=== PATIENT | male | born 1975 | race Caucasian/White ===

== ENCOUNTER 2019-10-21 21:27 | Observation (INO) ==
[2019-10-21 22:01] LABS: Basophils % 0.1 % (0.1-2.0); Eosinophils # 0.4 K/mm3 (0.0-0.4); Eosinophils % 1.7 % (0.1-12.0); Hematocrit 52.2 % (42.0-52.0); Hemoglobin 17.9 g/dL (14.1-18.0); Lymphocytes # 1.8 K/mm3 (0.7-4.5); Mean Corpuscular HGB Conc 34.3 g/dL (31.8-35.4); Mean Corpuscular Volume 92.6 fl (80-94); Mean Platelet Volume 7.5 fl (7.4-10.4); Monocytes # 0.8 K/mm3 (0.1-1.0); Monocytes % 3.8 % (1.7-9.3); Neutrophils # 18.8 K/mm3 (1.8-7.8); Neutrophils % 86.3 % (37.0-80.0); Platelet Count 310 K/mm3 (142-424); Red Blood Count 5.64 M/mm3 (4.60-6.20); Red Cell Distribution Width 15.4 % (11.5-17.5); White Blood Count 21.8 K/mm3 (4.8-10.8)
[2019-10-21 22:08] LABS: Albumin Level 3.9 gm/dL (3.4-5.0); Albumin/Globulin Ratio 0.9 (1.1-1.8); Bilirubin,Total 1.2 mg/dL (0.2-1.0); Calcium 9.1 mg/dL (8.5-10.1); Globulin 4.5 gm/dl (1.3-3.2); Total Protein,Serum 8.4 gm/dL (6.4-8.2)
--- NOTE | 2019-10-21 22:28 | Emergency Department Note ---
ED Disposition Clinical Impression: SIRS (systemic inflammatory response syndrome) Pharyngitis Qualifiers: Pharyngitis/tonsillitis etiology: unspecified etiology Qualified Code(s): J02.9 - Acute pharyngitis, unspecified Cholelithiasis Qualifiers: Cholelithiasis location: gallbladder Cholecystitis presence: without cholecystitis Biliary obstruction: without biliary obstruction Qualified Code(s): K80.20 - Calculus of gallbladder without cholecystitis without obstruction Disposition: Admitted as Observation Condition on Discharge: Good Instructions: DI for Nausea -- Child Referrals: Toni Zapien [Primary Care Provider] - - Critical Care Critical Care Time: No Attestation: On 10/21/19, the high probability of a clinically significant, sudden or life threatening deterioration of the following system(s) required my full and direct attention, intervention and personal management. The time I documented below is in addition to time spent performing reported procedures but includes the following listed in this critical care notation. Medical Decision Making - Medical Records Medical records reviewed: Yes: I reviewed the patient's medical records. - Bertin Inquiry Pt receiving controlled substance: No Vital Signs: 10/21/19 21:36 Temperature 98.5 F Temperature Source Oral Pulse Rate [Right] 96 H Respiratory Rate 18 Blood Pressure [Right Arm] 123/87 Blood Pressure Mean [Right Arm] 99 Blood Pressure Source [Right Arm] Automatic Cuff Blood Pressure Position [Right Arm] Sitting 02 Sat by Pulse Oximetry 96 Oxygen Delivery Method Room Air - Lab Data Lab results reviewed: Yes: I reviewed the patient's lab results. Lab Results 10/21/19 21:45: C-Reactive Protein 9.0 H, Amylase 89, Lipase 75 10/21/19 21:45: ESR 8 10/21/19 21:45: WBC 21.8 H*, RBC 5.64, Hgb 17.9, Hct 52.2 H, MCV 92.6, MCH 31.8 H, MCHC 34.3, RDW 15.4, Plt Count 310, MPV 7.5, Neut % (Auto) 86.3 H, Lymph % (Auto) 8.0 L, [place] % (Auto) 3.8, Eos % (Auto) 1.7, Baso % (Auto) 0.1, Neut # (Auto) 18.8 H, Lymph # (Auto) 1.8, [place] # (Auto) 0.8, Eos # (Auto) 0.4, Baso # (Auto) 0.0, Total Counted 100, Neutrophils % (Manual) 80 H, Lymphocytes % (Manual) 17, Monocytes % (Manual) 3, Platelet Estimate Normal, Stomatocytes 1+ 10/21/19 21:45: Sodium 138, Potassium 3.0 L, Chloride 92 L, Carbon Dioxide 33 H, Anion Gap 16.0 H, BUN 23 H, Creatinine 0.98, Estimated Creat Clear 139, Estimated GFR 82, Est GFR ( Amer) 100, Glucose 128 H, Calcium 9.1, Total Bilirubin 1.2 H, AST 164 H, ALT 65, Alkaline Phosphatase 93, Total Protein 8.4 H , Albumin 3.9, Globulin 4.5 H, Albumin/Globulin Ratio 0.9 L 10/21/19 21:54: Influenza Type A Ag Negative, Influenza Type B Ag Negative 10/21/19 21:54: Group A Strep Rapid Negative 10/21/19 23:44: Urine Color Bridgett, Urine Appearance Slightly cloudy, Urine pH 6.0, Ur Specific [place] >= 1.030, Urine Protein 1+, Urine Glucose (UA) Negative, Urine Ketones 3+, Urine Blood 3+, Urine Nitrate Negative, Urine Bilirubin Negative, Urine Urobilinogen 2.0, Ur Leukocyte Esterase Negative, Urine RBC 5-10, Urine WBC 3-5, Ur Squamous Epith Cells Occasional, Urine Bacteria 1+, Urine Mucus 1+ 10/22/19 00:00: Mycoplasma pneumon IgM Non-reactive 10/22/19 01:10: Lactate 1.2 Result diagrams: 10/21/19 21:45 10/21/19 21:45 Orders (Tests/Meds): ED MEDICATIONS Generic Name Dose Route Start Last Admin Trade Name Freq PRN Reason Stop Dose Admin Ampicillin Sodium/Sulbactam 100 mls @ 200 mls/hr 10/22/19 02:15 Sodium 3 gm/ Sodium Chloride IV 11/05/19 02:14 Q6H KATHERINE Protocol Discontinued Medications Generic Name Dose Route Start Last Admin Trade Name Freq PRN Reason Stop Dose Admin Dexamethasone Sodium Phosphate 4 mg 10/22/19 02:10 Decadron 4mg/Ml 1ml Vial IV 10/22/19 02:11 ONCE ONE Diatrizoate Meglum/Diatrizoate Sod 30 ml 10/21/19 22:27 10/21/19 22:32 Gastrografin 66%-10% 30ml PO 10/21/19 22:28 30 ml ONCE ONE Administration Sodium Chloride 1,000 mls @ 999 mls/hr 10/21/19 22:00 10/21/19 21:55 Sod Chlor 0.9% 1000ml Bag IV 10/21/19 23:00 999 mls/hr .Q1H1M KATHERINE Administration Ioversol 75 ml 10/22/19 01:40 10/22/19 01:41 Rad-Optiray 350 100ml Vial IV 10/22/19 01:41 75 ml ONCE ONE Administration Protocol Lidocaine HCl 15 ml 10/22/19 02:11 Lidocaine 2% Viscous Solution 15ml Udc PO 10/22/19 02:12 ONCE ONE Methylprednisolone Sodium Succinate 125 mg 10/22/19 02:06 10/22/19 02:07 Solu-Medrol 125mg/2ml Vial IV 10/22/19 02:07 125 mg ONCE ONE Administration Ondansetron HCl 4 mg 10/21/19 21:49 10/21/19 21:54 Zofran 4mg/2ml Vial IV 10/21/19 21:50 4 mg ONCE ONE Administration Sodium Chloride 10 ml 10/22/19 01:40 10/22/19 01:41 Rad-Saline Flush 10ml Syringe IV 10/22/19 01:41 10 ml ONCE ONE Administration ORDERS Category Date Time Status CT abdomen pelvis w con Stat Cat Scan 10/22/19 00:01 Taken Chest XR 2 view (NOT portable) [XR chest 2V] Stat Exams 10/21/19 22:26 Taken Strep Screen Confirmation Stat Micro 10/21/19 21:54 Received - Radiology Data #1 Image(s): Chest Image Reviewed: Yes I reviewed the patient's radiology image Preliminary Findings: Normal/NAD - CT Data CT Scan: Abdomen, Pelvis Time Received: 02:[address] Reviewed: Yes: I have viewed the radiologist's interpretation Preliminary Findings: Abnormal (gallstones ) - Physician Consults Physician Consulted: ashwini Reason -: Admission Nausea/Vomiting/Diarrhea HPI - General Chief complaint: Nausea/Vomiting/Diarrhea Stated complaint: Vomiting three days Time Seen by Provider: 10/21/19 21:45 Mode of Arrival: Ambulatory Source of Information: Patient, Spouse, Medical Record Limitations: No Limitations Description of Symptoms (Recalled from ER Triage Doc. by RN): PATIENT REPORTS VOMITNG, SORE THROAT AND BODY ACHES X3 DAYS. - History of Present Illness HPI Narrative: sore throat and laryngitis over the last 2 days with hx of persistent vomiting and upper abd pain prior - no etoh and no recent tob use - no melena - no diarrhea - MD complaint: nausea, vomiting, abdominal pain Onset (ago): day(s) Description of Vomiting: bilious Associated Abdominal Pain: Yes Location of pain: epigastric Severity: moderate - Related Data Home Medications Medication Instructions Recorded Confirmed No Known Home Medications 07/10/18 07/10/18 Allergies Allergy/AdvReac Type Severity Reaction Status Date / Time No Known Allergies Allergy Verified 07/10/18 01:17 [facility] History - Hepatitis A Screen Drug use history?: No High risk sexual behaviors?: No History of sexually transmitted infection?: No Currently employed?: No Childcare worker?: No Do you have indoor plumbing?: Yes Do you have electricity?: Yes Attestation statement:: This patient has been screened for Hepatitis A risk factors. I have reviewed the patient's past medical history: Yes - Social History Smoking Status: Current every day smoker # Packs/Day (cigarettes): 1 Alcohol Intake: never Alcohol Intake Frequency:: holidays/special occasions only Occupational Status: unemployed ROS Obtained: Yes All systems reviewed & no additional complaints - Constitutional Constitutional: Denies fever(s), Reports weight loss - Eyes Eyes: Denies change in vision - ENT Ears, Nose, Mouth, and Throat: Reports as per HPI, Reports change in voice, Reports sore throat, Reports throat swelling - Cardiovascular Cardiovascular: Denies chest pain, Denies dyspnea - Respiratory Respiratory: No cough - Gastrointestinal Gastrointestingal: Reports: as per HPI, abdominal pain, nausea - Genitourinary Male Genitourinary: Denies flank pain, Denies hematuria - Musculoskeletal Musculoskeletal: Denies joint pain, Denies joint swelling - Integumentary/Breasts Skin/Breast: Denies rash - Neurologic Neurologic: Denies abnormal speech, Denies confusion, Denies focal weakness, Denies seizure-like activity Physical Exam - General General appearance: alert - Head Head exam: normocephalic - Eye Eye exam: Present: PERRL, EOMI. Absent: scleral icterus - Expanded ENT Exam Throat exam: Present: tonsillar erythema, muffled voice, other (exudative changes ) - Neck Neck exam: Present: full ROM, trachea midline - Respiratory Respiratory exam: Present: normal lung sounds bilaterally. Absent: respiratory distress - Cardiovascular Cardiovascular exam: Present: regular rate, systolic murmur. Absent: rubs - Abdominal Exam Abdominal exam: Present: soft, tenderness. Absent: guarding, rebound, rigidity Abdominal tenderness: Present: epigastrium, moderate - Extremities Exam Extremities exam: Present: full ROM - Neurological Exam Neurological exam: Present: alert, oriented X3, CN II-XII intact - Psychiatric Psychiatric exam: Present: normal affect - Skin Skin exam: Absent: rash
[2019-10-21 23:50] LABS: Lymphocytes % 17 % (10-50); Monocytes % 3 % (2-9); Neutrophils % 80 % (42-76); Stomatocytes 1+; Total Cells Counted 100
[2019-10-21 23:51] LABS: Microscopic, Urine URINE MICROSCOPIC (MICROSCOPIC)
[2019-10-21 23:56] LABS: Blood, Urine 3+ (Negative); Glucose,Urine (UA) Negative (Negative); Ketones,Urine 3+ (Negative); Leukocyte Esterase,Urine Negative (Negative); Protein,Urine 1+ (Negative); Specific Gravity, Urine >= 1.030 (1.005-1.030)
[2019-10-21 23:59] LABS: Appearance,Urine Slightly Cloudy (Clear); Color,Urine Amber (Yellow)
[2019-10-22 00:02] LABS: Bilirubin,Urine Negative (Negative)
[2019-10-22 00:03] LABS: Bacteria,Urine 1+ /lpf; Mucus,Urine 1+ /lpf; Squamous Epithelial Cell,Urine Occasional #/hpf (0-5)
[2019-10-22 05:58] LABS: Calcium 8.2 mg/dL (8.5-10.1)
[2019-10-22 06:00] LABS: Eosinophils # 0.2 K/mm3 (0.0-0.4); Hematocrit 47.9 % (42.0-52.0); Hemoglobin 16.2 g/dL (14.1-18.0); Lymphocytes # 0.9 K/mm3 (0.7-4.5); Lymphocytes % 4.5 % (10-50); Mean Corpuscular HGB Conc 33.9 g/dL (31.8-35.4); Mean Corpuscular Volume 94.9 fl (80-94); Mean Platelet Volume 7.4 fl (7.4-10.4); Monocytes # 0.3 K/mm3 (0.1-1.0); Monocytes % 1.4 % (1.7-9.3); Neutrophils # 17.4 K/mm3 (1.8-7.8); Neutrophils % 93.1 % (37.0-80.0); Platelet Count 279 K/mm3 (142-424); Red Blood Count 5.05 M/mm3 (4.60-6.20); Red Cell Distribution Width 15.6 % (11.5-17.5); White Blood Count 18.7 K/mm3 (4.8-10.8)
--- NOTE | 2019-10-22 08:14 | History & Physical Report ---
*Admission Date: 10/22/19 *Chief complaint: Fever and sore throat *History of present illness: 44-year-old white male with rheumatoid arthritis, currently on methotrexate, sees rheumatology in [facility], who presented to the emergency department with a severe fever, abdominal pain and sore throat. In the emergency department he had a significant pharyngitis, lots of swelling, lots of issues with inability to swallow. Group A strep testing was negative, but given the severe pharyngitis blistering and lack of p.o. intake as well as leukocytosis, patient was admitted with a diagnosis of Sirs for IV antibiotics. This morning he feels somewhat better, is able to swallow water. [facility] History I have reviewed the patient's past medical history: Yes *Have you ever received a pneumonia vaccine?: No *Have you received a flu vaccine this season?: No Other Medical History: Reports: Arthritis - *Social History Educational Level: Attended High School Smoking Status: Former smoker Tobacco Type: cigarettes # Packs/Day (cigarettes): 1 Smoking End Date: 10/19/19 Alcohol Intake: never Alcohol Intake Frequency:: holidays/special occasions only *Occupational Status:: unemployed Household Members: significant other *Travel in the last 8 weeks: None Family Hx:: Unable to obtain Review of Systems - Review of Systems Review of systems:: pertinent systems reviewed and negative unless documented below Denies pulmonary or cardiac symptoms. Denies vomiting or diarrhea. Abdominal pain improving. Otherwise 10 point review of systems negative except for significant throat pain. - *Neurologic Denies abnormal speech, Denies confusion, Denies localized weakness, Denies seizure-like activity Meds Home Medications Medication Instructions Recorded Confirmed Type Folic Acid 1 mg PO DAILY 10/22/19 10/22/19 History Gabapentin [Gabapentin 300mg Cap] 300 mg PO TID 10/22/19 10/22/19 History metHOTREXate sodium [metHOTREXate 2.5 mg PO DAILY 10/22/19 10/22/19 History 2.5mg Tablet] Allergies Allergy/AdvReac Type Severity Reaction Status Date / Time No Known Allergies Allergy Verified 07/10/18 01:17 Exam Vital signs and Labs for Last 24 Hours: Temp Pulse Resp BP Pulse Ox 98.8 F 88 19 127/78 91 L 10/22/19 07:57 10/22/19 07:57 10/22/19 07:57 10/22/19 07:57 10/22/19 07:57 Laboratory Results - last 24 hr 10/21/19 21:45: C-Reactive Protein 9.0 H, Amylase 89, Lipase 75 10/21/19 21:45: ESR 8 10/21/19 21:45: WBC 21.8 H*, RBC 5.64, Hgb 17.9, Hct 52.2 H, MCV 92.6, MCH 31.8 H, MCHC 34.3, RDW 15.4, Plt Count 310, MPV 7.5, Neut % (Auto) 86.3 H, Lymph % (Auto) 8.0 L, [place] % (Auto) 3.8, Eos % (Auto) 1.7, Baso % (Auto) 0.1, Neut # (Auto) 18.8 H, Lymph # (Auto) 1.8, [place] # (Auto) 0.8, Eos # (Auto) 0.4, Baso # (Auto) 0.0, Total Counted 100, Neutrophils % (Manual) 80 H, Lymphocytes % (Manual) 17, Monocytes % (Manual) 3, Platelet Estimate Normal, Stomatocytes 1+ 10/21/19 21:45: Sodium 138, Potassium 3.0 L, Chloride 92 L, Carbon Dioxide 33 H, Anion Gap 16.0 H, BUN 23 H, Creatinine 0.98, Estimated Creat Clear 139, Estimated GFR 82, Est GFR ( Amer) 100, Glucose 128 H, Calcium 9.1, Total Bilirubin 1.2 H, AST 164 H, ALT 65, Alkaline Phosphatase 93, Total Protein 8.4 H , Albumin 3.9, Globulin 4.5 H, Albumin/Globulin Ratio 0.9 L 10/21/19 21:54: Influenza Type A Ag Negative, Influenza Type B Ag Negative 10/21/19 21:54: Group A Strep Rapid Negative 10/21/19 23:44: Urine Color Bridget[place], Urine Appearance Slightly cloudy, Urine pH 6.0, Ur Specific [place] >= 1.030, Urine Protein 1+, Urine Glucose (UA) Negative, Urine Ketones 3+, Urine Blood 3+, Urine Nitrate Negative, Urine Bilirubin Negative, Urine Urobilinogen 2.0, Ur Leukocyte Esterase Negative, Urine RBC 5-10, Urine WBC 3-5, Ur Squamous Epith Cells Occasional, Urine Bacteria 1+, Urine Mucus 1+ 10/22/19 00:00: Mycoplasma pneumon IgM Non-reactive 10/22/19 01:10: Lactate 1.2 10/22/19 05:41: WBC 18.7 H, RBC 5.05, Hgb 16.2, Hct 47.9, MCV 94.9 H, MCH 32.1 H , MCHC 33.9, RDW 15.6, Plt Count 279, MPV 7.4, Neut % (Auto) 93.1 H, Lymph % (Auto) 4.5 L, [place] % (Auto) 1.4 L, Eos % (Auto) 1.0, Baso % (Auto) 0.0 L, Neut # (Auto) 17.4 H, Lymph # (Auto) 0.9, [place] # (Auto) 0.3, Eos # (Auto) 0.2, Baso # (Auto) 0.0 10/22/19 05:41: Sodium 141, Potassium 3.0 L, Chloride 99, Carbon Dioxide 32, Anion Gap 13.0, BUN 20 H, Creatinine 0.82, Estimated Creat Clear 131, Estimated GFR 101, Est GFR ( Amer) 122 D, Glucose 127 H, Calcium 8.2 L, Magnesium 2.3 H I & O for Last 24 hours: Intake & Output 10/19/19 10/20/19 10/21/19 10/22/19 11:59 11:59 11:59 11:59 Intake Total 1270 / 1270 Balance 1270 / 1270 Weight 182 lb Narrative: Patient is awake, alert. Oriented x3. Is unable to give a detailed history of medications or his prior doctors. ENT exam shows nonicteric sclera, no evidence of deformity of the neck. Midline trachea. No significant lymphadenitis or lumps or masses in the neck. Oropharynx is significantly red, lots of blistering. Lots of petechiae. Tonsils are swollen, covered with greenish/[place] exudate. Lungs are clear, heart rate regular, abdomen soft, No neurologic deficits. Assessment and Plan (1) Pharyngitis Current visit: Yes Status: Acute Qualifiers: Pharyngitis/tonsillitis etiology: unspecified etiology Qualified Code(s): J02.9 - Acute pharyngitis, unspecified Category: Medical Code(s): J02.9 - Acute pharyngitis, unspecified Significant disease. Inability to swallow. Significant leukocytosis. Agree with antibiotics, steroids, check cultures, seems to be improving clinically, advance to clear liquid diet, possible discharge tomorrow. (2) SIRS (systemic inflammatory response syndrome) Current visit: Yes Status: Acute Category: Medical Code(s): R65.10 - Sys temic inflammatory response syndrome (SIRS) of non-infectious origin without acute organ dysfunction Symptoms improving. Continue current management
--- NOTE | 2019-10-22 10:04 | Pharmacy Consult Notes ---
[facility] Pharmacy VTE Monitoring - Patient Demographics Admission date: 10/22/19 Report Date: 10/22/19 Time: 10:03 Allergies/Adverse Reactions: Patient Allergies No Known Allergies Allergy (Verified 07/10/18 01:17) Height: 1.8 m Weight: 82.554 kg Patient Problems: Current Active Problems Pharyngitis (Acute) Cholelithiasis (Acute) SIRS (systemic inflammatory response syndrome) (Acute) - VTE Risk Labs: VTE Related Lab Results Hgb 16.2 g/dL (14.1-18.0) 10/22/19 05:41 Hct 47.9 % (42.0-52.0) 10/22/19 05:41 Plt Count 279 K/mm3 (142-424) 10/22/19 05:41 BUN 20 mg/dL (7-18) H 10/22/19 05:41 Creatinine 0.82 mg/dL (0.70-1.30) 10/22/19 05:41 Estimated Creat Clear 131 mL/min (50-200) 10/22/19 05:41 Was VTE Risk Assessment Performed: Yes VTE Score: 2 Clinical Trial Participant: No - Prophylaxis VTE Prophylaxis Ordered?: Yes Types of VTE Prophylaxis: TEDS Knee High Location of Applied Device: Not Applicable
[2019-10-23 06:20] LABS: Basophils % 0.2 % (0.1-2.0); Eosinophils % 0.1 % (0.1-12.0); Hematocrit 42.3 % (42.0-52.0); Lymphocytes # 3.3 K/mm3 (0.7-4.5); Mean Corpuscular HGB Conc 34.1 g/dL (31.8-35.4); Mean Corpuscular Volume 94.6 fl (80-94); Mean Platelet Volume 7.4 fl (7.4-10.4); Neutrophils # 12.9 K/mm3 (1.8-7.8); Neutrophils % 74.8 % (37.0-80.0); Platelet Count 253 K/mm3 (142-424); Red Blood Count 4.47 M/mm3 (4.60-6.20); Red Cell Distribution Width 15.5 % (11.5-17.5); White Blood Count 17.2 K/mm3 (4.8-10.8)
[2019-10-23 06:21] LABS: Hemoglobin 14.4 g/dL (14.1-18.0)
[2019-10-23 06:33] LABS: Lymphocytes % 22 % (10-50); Monocytes % 1 % (2-9); Neutrophils % 75 % (42-76); RBC Morphology Normal; Total Cells Counted 100
[2019-10-23 06:35] LABS: Albumin Level 2.9 gm/dL (3.4-5.0); Albumin/Globulin Ratio 0.8 (1.1-1.8); Anion Gap 10.9 mEq/L (5-15); Bilirubin,Total 1.1 mg/dL (0.2-1.0); Calcium 7.9 mg/dL (8.5-10.1); Globulin 3.6 gm/dl (1.3-3.2); Total Protein,Serum 6.5 gm/dL (6.4-8.2)
--- NOTE | 2019-10-23 09:40 | Discharge Summary ---
General - General Admission date:: 10/22/19 Discharge date: 10/23/19 HPI HPI: 44-year-old white male with rheumatoid arthritis, currently on methotrexate, sees rheumatology in [facility], who presented to the emergency department with a severe fever, abdominal pain and sore throat. In the emergency department he had a significant pharyngitis, lots of swelling, lots of issues with inability to swallow. Group A strep testing was negative, but given the severe pharyngitis blistering and lack of p.o. intake as well as leukocytosis, patient was admitted with a diagnosis of Sirs for IV antibiotics. This morning he feels somewhat better, is able to swallow water. Hospital Course Hospital Course: 44-year-old male admitted for severe pharyngitis. Tolerated IV antibiotics with improvement in symptoms. Able to tolerate oral liquids and maintain good hydration. Having some discomfort with more solid nutrition including applesauce and Jell-O however drinking over a liter and a half a day of fluids and maintaining hydration status. Transition from IV to oral antibiotics prior to discharge with good tolerance of medication. Counseled on crushing medication and adding it to applesauce or pudding. Patient remained afebrile. Improvement in white count. Medically stable for discharge home. Strep swab was negative Denied chest pain, shortness of breath, nausea or vomiting. Still has sore throat though intervally improved since admission Objective Vital signs: Temp Pulse Resp BP Pulse Ox 97.8 F 75 18 122/62 95 10/23/19 07:39 10/23/19 07:39 10/23/19 07:39 10/23/19 07:39 10/23/19 07:39 Narrative: Patient is awake, alert, sitting upright in bed on interview. Oriented x3. ENT exam shows nonicteric sclera, no evidence of deformity of the neck. Midline trachea. No significant lymphadenitis or lumps or masses in the neck. Oropharynx is erythematous with blistering, and petechiae on soft palate. Tonsils with minimal greenish/[place] exudate. Lungs are clear, no wheeze or rhonchi heart rate regular, no murmur abdomen soft, bowel sounds active No neurologic deficits. Results Labs on day of discharge: Labs from last 24 hours 10/23/19 10/23/19 05:30 05:30 WBC 17.2 H RBC 4.47 L Hgb 14.4 D Hct 42.3 MCV 94.6 H MCH 32.3 H MCHC 34.1 RDW 15.5 Plt Count 253 MPV 7.4 Neut % (Auto) 74.8 Lymph % (Auto) 19.0 [place] % (Auto) 6.0 Eos % (Auto) 0.1 Baso % (Auto) 0.2 Neut # (Auto) 12.9 H Lymph # (Auto) 3.3 [place] # (Auto) 1.0 Eos # (Auto) 0.0 Baso # (Auto) 0.0 Total Counted 100 Neutrophils % (Manual) 75 Band Neutrophils % 2.0 Lymphocytes % (Manual) 22 Monocytes % (Manual) 1 L Platelet Estimate Normal RBC Morphology Normal Sodium 142 Potassium 2.9 L* Chloride 104 Carbon Dioxide 30 Anion Gap 10.9 BUN 19 H Creatinine 0.73 Estimated Creat Clear 146 Estimated GFR 116 Est GFR ( Amer) 140 Glucose 85 D Calcium 7.9 L Total Bilirubin 1.1 H AST 101 H D ALT 79 H Alkaline Phosphatase 61 Total Protein 6.5 Albumin 2.9 L D Globulin 3.6 H Albumin/Globulin Ratio 0.8 L DS: Diagnosis - Discharge Diagnosis (1) Pharyngitis Status: Acute (2) SIRS (systemic inflammatory response syndrome) Status: Acute (3) Rheumatoid arthritis Status: Chronic Discharge Plan - Patient Discharge Instructions Patient Instructions: Sore Throat, DI for Pharyngitis/Tonsillopharyngitis -- Adult - Follow up Plan Disposition: Home, Self-Assisted Medications: Home Medications Medication Instructions Recorded Confirmed Type Folic Acid 1 mg PO DAILY 10/22/19 10/22/19 History Gabapentin [Gabapentin 300mg Cap] 300 mg PO TID 10/22/19 10/22/19 History metHOTREXate sodium [metHOTREXate 2.5 mg PO DAILY 10/22/19 10/22/19 History 2.5mg Tablet] Amoxicillin/Potassium Clav 1 each PO TID 10 Days #30 tab 10/23/19 Rx [Augmentin 500mg tab] Prescriptions/Medication Reconciliation: New Amoxicillin/Potassium Clav [Augmentin 500mg tab] 1 each PO TID 10 Days #30 tab Continued metHOTREXate sodium [metHOTREXate 2.5mg Tablet] 2.5 mg PO DAILY Gabapentin [Gabapentin 300mg Cap] 300 mg PO TID Folic Acid 1 mg PO DAILY - Problem Reconciliation Problems Reviewed?: Yes
== END 2019-10-23 14:35 | disposition home or self-care (01) | DRG 153 ==
LOC: ER 21:27 → 2ND 21:27 → OBSVTOIN 10-22 03:37 → INTOOBSV 10-22 03:37 → 2ND 10-22 03:37
PROVIDERS: ADMIT Internal Medicine Adolescent Medicine; ATTEND Internal Medicine Adolescent Medicine
CPT/HCPCS: 36415; 71020; 71046; 74177; 80048; 80053; 81001; 82150; 83605; 83690; 83735; 85007; 85025; 85651; 86140; 86738; 87040; 87275; 87276; 87430; 96365; 96367; 96375; 99284; G0378; J2405; Q9967

== ENCOUNTER 2021-04-30 05:58 | Observation (INO) | payer MEDICAID, SELFPAY ==
[2021-04-30] VITALS (12 sets, daily range): BP systolic 120–158; BP diastolic 66–99; PULSE 82–143; RESP 18–22; TEMP 36.4–37; O2SAT 96–98; BMI 27.2; BMI 28.7; BMI 25.1
--- NOTE | 2021-04-30 05:54 | CT_ITS ---
PROCEDURE INFORMATION: Exam: CT Abdomen And Pelvis With Contrast Exam date and time: 04/30/2021 5:54 AM Age: 46 years old Clinical indication: Vomiting; Prior surgery TECHNIQUE: Imaging protocol: Computed tomography of the abdomen and pelvis with contrast. Radiation optimization: All CT scans at this facility use at least one of these dose optimization techniques: automated exposure control; mA and/or kV adjustment per patient size (includes targeted exams where dose is matched to clinical indication); or iterative reconstruction. Contrast material: ISOVUE; Contrast volume: 75 ml; Contrast route: IV; COMPARISON: CT ABDOMEN PELVIS W CON 10/22/2019 12:26 AM FINDINGS: Mediastinal space: A small hiatal hernia is present. Liver: There is diffuse decrease in hepatic parenchymal density, consistent with fatty infiltration. Gallbladder and bile ducts: There has been a cholecystectomy. Pancreas: Normal. No ductal dilation. Spleen: Normal. No splenomegaly. Adrenal glands: Normal. No mass. Kidneys and ureters: Normal. No hydronephrosis. Stomach and bowel: Unremarkable. No obstruction. No mucosal thickening. Appendix: No evidence of appendicitis. Intraperitoneal space: Unremarkable. No free air. No significant fluid collection. Vasculature: Unremarkable. No abdominal aortic aneurysm. Lymph nodes: Unremarkable. No enlarged lymph nodes. Urinary bladder: Unremarkable as visualized. Reproductive: The prostate gland demonstrates nonspecific parenchymal calcifications. Bones/joints: Unremarkable. No acute fracture. Soft tissues: There is a fat containing umbilical hernia. IMPRESSION: No acute findings.
[2021-04-30 06:02] LABS: Basophils # 0.1 K/mm3 (0-0.2); Basophils % 0.6 % (0.1-2.0); Monocytes # 0.7 K/mm3 (0.1-1.0)
[2021-04-30 06:04] LABS: Eosinophils # 0.1 K/mm3 (0.0-0.4); Eosinophils % 0.7 % (0.1-12.0); Lymphocytes # 1.6 K/mm3 (0.7-4.5); Lymphocytes % 7.5 % (10-50); Mean Corpuscular HGB Conc 34.4 g/dL (31.8-35.4); Mean Corpuscular Hemoglobin 32.6 pg (27.0-31.2); Mean Corpuscular Volume 94.9 fl (80-94); Mean Platelet Volume 8.2 fl (7.4-10.4); Monocytes % 3.2 % (1.7-9.3); Neutrophils # 18.7 K/mm3 (1.8-7.8); Platelet Count 399 K/mm3 (142-424); Red Cell Distribution Width 14.8 % (11.5-17.5); White Blood Count 21.2 K/mm3 (4.8-10.8)
[2021-04-30 06:05] LABS: Hemoglobin 19.3 g/dL (14.1-18.0)
[2021-04-30 06:06] LABS: MANUAL DIFFERENTIAL MANUAL DIFFERENTIAL (MANUAL DIFF)
[2021-04-30 06:10] LABS: Albumin Level 5.4 g/dl (3.5-5.0); Albumin/Globulin Ratio 1.5 (1.1-1.8); Alkaline Phosphatase 128 U/L (38-126); Amylase 115 U/L (30-110); Anion Gap 30.5 mEq/L (5-15); Bilirubin,Total 1.2 mg/dl (0.2-1.3); Blood Urea Nitrogen 13 mg/dl (9-20); Carbon Dioxide 23 mmol/L (22.0-30.0); Chloride 93 mmol/L (98-107); Creatinine Clearance Estimated 129 mL/min (50-200); Estimated Glomerular Filt Rate 90 ml/min (>60); GFR (African American) 109 ML/MIN (>60); Globulin 3.7 g/dL (1.3-3.2); Glucose 253 mg/dl (74-100); Lipase 36 U/L (23-300); Potassium 3.5 mmoL/L (3.5-5.1); Sodium 143 mmol/L (136-145); Total Protein,Serum 9.1 g/dl (6.3-8.2)
[2021-04-30 06:12] LABS: Lymphocytes % 6 % (10-50); Monocytes % 5 % (2-9); Neutrophils % 89 % (42-76); Platelet Estimate Normal; Total Cells Counted 100
[2021-04-30 06:13] LABS: Spherocytes 2+; Stomatocytes 2+
[2021-04-30 06:15] LABS: C-Reactive Protein 10.8 mg/L (0-4)
[2021-04-30 06:16] LABS: Alanine Aminotransferase 54 U/L (12-78)
[2021-04-30 06:17] LABS: Aspartate Amino Transferase 44 U/L (17-59)
[2021-04-30 06:26] LABS: Troponin I < 0.01 ng/ml (0.00-0.034)
--- NOTE | 2021-04-30 06:27 | PC.NURSE ---
Unable to confirm home medications d/t pt not knowing what I take, my gets all my meds for me . not here at this time and did not answer phone call to confirm medications.
[2021-04-30 06:28] LABS: Erythrocyte Sedimentation Rate 6 mm/hr (0-15)
[2021-04-30 06:29] LABS: Procalcitonin 0.064 ng/mL (0.0-2.0)
[2021-04-30 06:39] LABS: Lactic Acid 6.3 mmol/L (0.7-2.1)
--- NOTE | 2021-04-30 06:43 | ECG_ITS ---
APPROVED REPORT Exam: Resting ECG HR:129 bpm ECG Measurements Heart Rate 129 AXES NH 140 P 80 QRSd 94 QRS 240 QT 338 T 69 QTc 495 Conclusion Sinus tachycardia Right superior axis deviation Right ventricular hypertrophy Cannot rule out Anterior infarct, age undetermined Abnormal ECG Electronically signed by : Ludwin Milligan, 05/01/2021 08:36:59
--- NOTE | 2021-04-30 06:45 | HMH.EDNVD ---
ED Disposition Clinical Impression: Intractable vomiting with nausea, Elevated lactic acid level Leukocytosis (leucocytosis) Qualifiers: Leukocytosis type: unspecified Qualified Code(s): D72.829 - Elevated white blood cell count, unspecified Disposition: Admitted as Observation Condition on Discharge: Good Instructions: DI for Diarrhea and Traveler's Diarrhea -- Adult, DI for Diarrhea and Traveler's Diarrhea -- Child, DI for Nausea -- Adult, DI for Nausea -- Child Referrals: Provider,Referral, [Primary Care Provider] - - Critical Care Critical Care Time: No Attestation: On 04/30/21, the high probability of a clinically significant, sudden or life threatening deterioration of the following system(s) required my full and direct attention, intervention and personal management. The time I documented below is in addition to time spent performing reported procedures but includes the following listed in this critical care notation. Medical Decision Making - Medical Records Medical records reviewed: Yes: I reviewed the patient's medical records. - Bertin Inquiry Pt receiving controlled substance: No Vital Signs: 04/30/21 05:48 Temperature 97.6 F Temperature Source Oral Pulse Rate [Right] 143 H Respiratory Rate 22 Blood Pressure [Right Arm] 135/97 H Blood Pressure Mean [Right Arm] 109 Blood Pressure Source [Right Arm] Automatic Cuff 02 Sat by Pulse Oximetry 98 Oxygen Delivery Method Room Air - Lab Data Lab results reviewed: Yes: I reviewed the patient's lab results. Lab Results 04/30/21 05:51: WBC 21.2 H*, RBC 5.90, Hgb 19.3 H*, Hct 56.0 H, MCV 94.9 H, MCH 32.6 H, MCHC 34.4, RDW 14.8, Plt Count 399, MPV 8.2, Neut % (Auto) 88.0 H, Lymph % (Auto) 7.5 L, [place] % (Auto) 3.2, Eos % (Auto) 0.7, Baso % (Auto) 0.6, Neut # (Auto) 18.7 H, Lymph # (Auto) 1.6, [place] # (Auto) 0.7, Eos # (Auto) 0.1, Baso # (Auto) 0.1, Total Counted 100, Neutrophils % (Manual) 89 H, Lymphocytes % (Manual) 6 L, Monocytes % (Manual) 5, Platelet Estimate Normal, Spherocytes 2+, Stomatocytes 2+, ESR 6 04/30/21 05:51: Sodium 143, Potassium 3.5, Chloride 93 L, Carbon Dioxide 23, Anion Gap 30.5 H, BUN 13, Creatinine 0.90, Estimated Creat Clear 129, Estimated GFR 90, Est GFR ( Amer) 109, Glucose 253 H, Calcium 10.0, Total Bilirubin 1.2, AST 44, ALT 54, Alkaline Phosphatase 128 H, C-Reactive Protein 10.8 H, Total Protein 9.1 H, Albumin 5.4 H, Globulin 3.7 H, Albumin/Globulin Ratio 1.5, Amylase 115 H, Lipase 36, Procalcitonin 0.064 04/30/21 05:51: Troponin I < 0.01 04/30/21 06:21: Lactate 6.3 H 04/30/21 06:21: Ammonia < 9 L 04/30/21 07:26: Urine Color Yellow, Urine Appearance Clear, Urine pH 8.0, Ur Specific [place] 1.020, Urine Protein 1+, Urine Glucose (UA) Negative, Urine Ketones 2+, Urine Blood Negative, Urine Nitrate Negative, Urine Bilirubin Negative, Urine Urobilinogen 0.2, Ur Leukocyte Esterase Negative, Urine RBC None, Urine WBC None, Ur Squamous Epith Cells Occasional, Amorphous Sediment 2+, Urine Bacteria None 04/30/21 07:26: Urine Opiates Screen Negative, Urine Methadone Screen Negative, Ur Barbituates Screen Negative, Ur Phencyclidine Scrn Negative, Ur Amphetamines Screen Negative, U Benzodiazepines Scrn Negative, Urine Cocaine Screen Negative, U Marijuana (THC) Screen Negative 04/30/21 07:29: SARS-CoV-2 (PCR) Not detected, Influenza A Untype (PCR) Not detected, Influenza Type B (PCR) Not detected Result diagrams: 04/30/21 05:51 04/30/21 05:51 Orders (Tests/Meds): ED MEDICATIONS Generic Name Dose Route Start Last Admin Trade Name Freq PRN Reason Stop Dose Admin Sodium Chloride 1,000 mls @ 999 mls/hr 04/30/21 09:15 04/30/21 09:22 Sod Chlor 0.9% 1000ml Bag IV 04/30/21 10:15 999 mls/hr .Q1H1M KATHERINE Administration Sodium Chloride 8 ml 04/30/21 06:48 Sodium Chloride 0.9% 10ml Vial IV 05/30/21 06:47 NEEDED PRN dilute pepcid Discontinued Medications Generic Name Dose Route Start Last Admin Trade Name Freq
[2021-04-30 06:53] LABS: Ammonia < 9 umol/L (9-30)
[2021-04-30 07:32] LABS: Microscopic, Urine URINE MICROSCOPIC (MICROSCOPIC)
[2021-04-30 07:34] LABS: Coronavirus 19, PCR Not Detected (NotDetected); Influenza A, PCR Not Detected (NotDetected); Influenza B, PCR Not Detected (NotDetected)
[2021-04-30 07:37] LABS: Appearance,Urine CLEAR (Clear); Bilirubin,Urine Negative (Negative); Blood, Urine Negative (Negative); Color,Urine YELLOW (Yellow); Glucose,Urine (UA) Negative (Negative); Ketones,Urine 2+ (Negative); Leukocyte Esterase,Urine Negative (Negative); Nitrate,Urine Negative (Negative); Protein,Urine 1+ (Negative); Urobilinogen,Urine 0.2 EU/dl (0.2)
[2021-04-30 07:44] LABS: Amorphous Sediment,Urine 2+ /lpf; Squamous Epithelial Cell,Urine Occasional #/hpf (0-5)
[2021-04-30 08:16] LABS: Barbiturates Screen,Urine Negative ng/ml (<200)
[2021-04-30 08:17] LABS: Benzodiazepines Screen,Urine Negative ng/ml (<200)
[2021-04-30 08:18] LABS: Amphetamine/Metha Screen,Urine Negative ng/ml (<1000); Cocaine Screen,Urine Negative ng/ml (<300)
[2021-04-30 08:19] LABS: Cannabinoid Screen,Urine Negative ng/ml (<50); Methadone Screen,Urine Negative ng/ml (<300)
[2021-04-30 08:20] LABS: Opiate Screen,Urine Negative ng/ml (<300)
[2021-04-30 08:21] LABS: Phencyclidine Screen,Urine Negative ng/ml (<25)
[2021-04-30 09:33] LABS: Reflex Lactic Add Lactic Reflex
[2021-04-30 09:47] LABS: Lactic Acid Follow Up (RFLX 1) 3.4 mmol/L (0.7-2.1)
[2021-04-30 10:00] LABS: Troponin I < 0.01 ng/ml (0.00-0.034)
--- NOTE | 2021-04-30 10:00 | HMH.HP ---
*Admission Date: 04/30/21 *Chief complaint: vomiting *History of present illness: this pt presented to the ed with vomiting and nausea with hx of same - he was at [facility] last week for same and had prev gb surg about 2 months ago- he has ongoing sx despite meds in the ed and will be admitted for ivf and treatment [facility] History I have reviewed the patient's past medical history: Yes *Have you ever received a pneumonia vaccine?: No *Have you received a flu vaccine this season?: No Other Medical History: Reports: Arthritis - *Social History Smoking Status: Former smoker Tobacco Type: cigarettes # Packs/Day (cigarettes): 1 Alcohol Intake: never Alcohol Intake Frequency:: holidays/special occasions only *Occupational Status:: unemployed Household Members: significant other *Travel in the last 8 weeks: None Family Hx:: Unable to obtain Review of Systems - Review of Systems Review of systems:: pertinent systems reviewed and negative unless documented below - Constitutional Denies fever(s) - Eyes Denies change in vision - ENT Denies sore throat - *Cardiovascular Denies chest pain at rest - *Respiratory Denies cough - *Gastrointestinal Reports nausea, Reports vomiting, Denies abdominal pain - *Genitourinary Denies blood in urine - *Musculoskeletal Denies joint pain - Integumentary/Breasts Denies rash - *Neurologic Denies localized weakness, Denies seizure-like activity Meds Home Medications Medication Instructions Recorded Confirmed Type Folic Acid 1 mg PO DAILY 10/22/19 04/30/21 History metHOTREXate sodium [metHOTREXate 2.5 mg PO DAILY 10/22/19 04/30/21 History 2.5mg Tablet] Loratadine [Allergy Relief] 10 mg PO DAILY 04/30/21 04/30/21 History Metoclopramide HCl [Metoclopramide 10 mg PO QID 04/30/21 04/30/21 History 10mg Tablet] Pantoprazole Sodium 40 mg PO DAILY 04/30/21 04/30/21 History Potassium Chloride [Klor-con 20 20 meq PO DAILY 04/30/21 04/30/21 History mEq tablet] polyethylene glycoL 3350 [Clearlax] 17 gm PO DAILY 04/30/21 04/30/21 History predniSONE [Prednisone 5mg 5 mg PO DAILY 04/30/21 04/30/21 History Tab] Allergies Allergy/AdvReac Type Severity Reaction Status Date / Time No Known Allergies Allergy Verified 07/10/18 01:17 Exam Vital signs and Labs for Last 24 Hours: Temp Pulse Resp BP Pulse Ox 97.6 F 143 H 22 135/97 H 98 04/30/21 05:48 04/30/21 05:48 04/30/21 05:48 04/30/21 05:48 04/30/21 05:48 Laboratory Results - last 24 hr 04/30/21 05:51: WBC 21.2 H*, RBC 5.90, Hgb 19.3 H*, Hct 56.0 H, MCV 94.9 H, MCH 32.6 H, MCHC 34.4, RDW 14.8, Plt Count 399, MPV 8.2, Neut % (Auto) 88.0 H, Lymph % (Auto) 7.5 L, [place] % (Auto) 3.2, Eos % (Auto) 0.7, Baso % (Auto) 0.6, Neut # (Auto) 18.7 H, Lymph # (Auto) 1.6, [place] # (Auto) 0.7, Eos # (Auto) 0.1, Baso # (Auto) 0.1, Total Counted 100, Neutrophils % (Manual) 89 H, Lymphocytes % (Manual) 6 L, Monocytes % (Manual) 5, Platelet Estimate Normal, Spherocytes 2+, Stomatocytes 2+, ESR 6 04/30/21 05:51: Sodium 143, Potassium 3.5, Chloride 93 L, Carbon Dioxide 23, Anion Gap 30.5 H, BUN 13, Creatinine 0.90, Estimated Creat Clear 129, Estimated GFR 90, Est GFR ( Amer) 109, Glucose 253 H, Calcium 10.0, Total Bilirubin 1.2, AST 44, ALT 54, Alkaline Phosphatase 128 H, C-Reactive Protein 10.8 H, Total Protein 9.1 H, Albumin 5.4 H, Globulin 3.7 H, Albumin/Globulin Ratio 1.5, Amylase 115 H, Lipase 36, Procalcitonin 0.064 04/30/21 05:51: Troponin I < 0.01 04/30/21 06:21: Lactate 6.3 H 04/30/21 06:21: Ammonia < 9 L 04/30/21 07:26: Urine Color Yellow, Urine Appearance Clear, Urine pH 8.0, Ur Specific [place] 1.020, Urine Protein 1+, Urine Glucose (UA) Negative, Urine Ketones 2+, Urine Blood Negative, Urine Nitrate Negative, Urine Bilirubin Negative, Urine Urobilinogen 0.2, Ur Leukocyte Esterase Negative, Urine RBC None, Urine WBC None, Ur Squamous Epith Cells Occasional, Amorphous Sediment 2+, Urine Bacteria None 04/30/21
--- NOTE | 2021-04-30 10:35 | PC.NURSE ---
report called to floor
[2021-04-30 11:27] LABS: Reflex Lactic (2 hrs) Add Lactic Reflex
[2021-04-30 12:17] LABS: Lactic Acid Follow up (RFLX 2) 1.2 mmol/L (0.7-2.1)
[2021-04-30 12:31] LABS: Troponin I < 0.01 ng/ml (0.00-0.034)
--- NOTE | 2021-04-30 14:35 | HMH.PHAVTE ---
[facility] Pharmacy VTE Monitoring - Patient Demographics Admission date: 04/30/21 Report Date: 04/30/21 Time: 14:35 Allergies/Adverse Reactions: Patient Allergies No Known Allergies Allergy (Verified 07/10/18 01:17) Height: 1.7 m Weight: 72.745 kg Patient Problems: Current Active Problems Intractable vomiting with nausea (Acute) Leukocytosis (leucocytosis) (Acute) Elevated lactic acid level (Acute) - VTE Risk Labs: VTE Related Lab Results Hgb 19.3 g/dL (14.1-18.0) H* 04/30/21 05:51 Hct 56.0 % (42.0-52.0) H 04/30/21 05:51 Plt Count 399 K/mm3 (142-424) 04/30/21 05:51 BUN 13 mg/dl (9-20) 04/30/21 05:51 Creatinine 0.90 mg/dl (0.66-1.25) 04/30/21 05:51 Estimated Creat Clear 129 mL/min (50-200) 04/30/21 05:51 - Prophylaxis Types of VTE Prophylaxis: TEDS Knee High (IVETT HOSE ORDER PLACED) Location of Applied Device: Not Applicable
--- NOTE | 2021-04-30 14:50 | PC.NURSE ---
SPOKE WITH PT MARV WHO VERIFIED HOME MEDS LIST
--- NOTE | 2021-04-30 15:28 | PC.NURSE ---
PT IS AOX4, ABLE TO MAKE NEEDS KNOWN TO STAFF, PT HAS SLEPT SINCE ARRIVING TO FLOOR EXCEPT FOR MEDICATIONS ADMIN. HE HAS DENIED N/V/D THUS FAR, NO PAIN NOTED, HE HAS REMAINED NPO PER ORDER, HE HAS USED WATER TO SWISH AND SPIT, PT ALSO PROVIDED WITH LIP AND ORAL CAVITY MOISTURIZER NEEDED, HE HAS NOT REQUIRED O2 SUPPORT, AMBULATED INDEPENDENTLY TO THE RESTROOM. NO NEEDS VOICED.
--- NOTE | 2021-05-01 01:14 | PC.NURSE ---
Patient is NPO has been given mouth swabs to moisten mouth and mouthwash due to c/o vomit taste in mouth at beginning of this PM shift. Patient called for nurse for c/o nausea; nurse went into room and patient requested emesis bag; nurse returned with bag, reviewed chart and Zofran not due at this time, patient then handed the nurse an empty bottle of mouthwash (which was given to him at start of full and unopened) asking if he could have another bottle. Nurse asked patient what happened to contents and patient stated he used it with the swabs to moisten his mouth when asked if he swallowed the mouthwash patient denied. Nurse left room for additional supplies to administer Reglan and upon return patient was actively vomitting in the emesis bag and c/o of stomach hurting and requested pain medication and asked if brought him more mouthwash. Nurse explained no more mouthwash as it may be the cause of the vomitting and pain in stomach. Nurse administered Tylenol 650mg per MAR. Removed cup from room that was used for small amount of water used to take the Tylenol. Another nurse past the room and the patient had a bottle turned up to his mouth drinking from it. This nurse went into room and asked patient if he was drinking anything and he denied. Will continue to monitor.
[2021-05-01 04:00] VITALS: BP 130/91; PULSE 81; RESP 20; TEMP 37.1; O2SAT 97
[2021-05-01 04:50] VITALS: BMI 25.9
[2021-05-01 06:30] LABS: Basophils # 0.1 K/mm3 (0-0.2); Basophils % 0.5 % (0.1-2.0); Eosinophils # 0.2 K/mm3 (0.0-0.4); Hematocrit 44.7 % (42.0-52.0); Hemoglobin 15.1 g/dL (14.1-18.0); Lymphocytes # 2.6 K/mm3 (0.7-4.5); Lymphocytes % 15.5 % (10-50); Mean Corpuscular HGB Conc 33.7 g/dL (31.8-35.4); Mean Corpuscular Volume 95.1 fl (80-94); Mean Platelet Volume 7.5 fl (7.4-10.4); Monocytes # 0.8 K/mm3 (0.1-1.0); Neutrophils # 13.1 K/mm3 (1.8-7.8); Platelet Count 258 K/mm3 (142-424); Red Blood Count 4.71 M/mm3 (4.60-6.20); Red Cell Distribution Width 14.7 % (11.5-17.5); White Blood Count 16.7 K/mm3 (4.8-10.8)
[2021-05-01 06:32] LABS: MANUAL DIFFERENTIAL MANUAL DIFFERENTIAL (MANUAL DIFF)
[2021-05-01 06:35] LABS: Lipase 62 U/L (23-300)
[2021-05-01 06:37] LABS: Alanine Aminotransferase 27 U/L (12-78); Albumin/Globulin Ratio 1.5 (1.1-1.8); Alkaline Phosphatase 77 U/L (38-126); Anion Gap 14.4 mEq/L (5-15); Aspartate Amino Transferase 29 U/L (17-59); Blood Urea Nitrogen 8 mg/dl (9-20); Carbon Dioxide 25 mmol/L (22.0-30.0); Chloride 106 mmol/L (98-107); Cholesterol 141 mg/dl (140-200); Creatinine Clearance Estimated 137 mL/min (50-200); Estimated Glomerular Filt Rate 120 ml/min (>60); GFR (African American) 146 ML/MIN (>60); Globulin 2.7 g/dL (1.3-3.2); Glucose 99 mg/dl (74-100); HDL Cholesterol 28 mg/dl (40-60); Potassium 3.4 mmoL/L (3.5-5.1); Sodium 142 mmol/L (136-145); Total Protein,Serum 6.7 g/dl (6.3-8.2); Triglycerides 152 mg/dl (30-150); VLDL Cholesterol 30 mg/dL (0-40)
[2021-05-01 06:48] LABS: Direct LDL Cholesterol 78.84 mg/dL (100-129)
[2021-05-01 07:14] LABS: Calcium 8.2 mg/dl (8.4-10.2)
[2021-05-01 07:32] VITALS: BP 112/64; PULSE 89; RESP 18; TEMP 37.2; O2SAT 98
[2021-05-01 08:03] LABS: Lymphocytes % 18 % (10-50); Monocytes % 8 % (2-9); Neutrophils % 74 % (42-76); Platelet Estimate Normal; RBC Morphology Normal; Total Cells Counted 100
--- NOTE | 2021-05-01 08:54 | HMH.DCSUM ---
General - General Admission date:: 04/30/21 Discharge date: 05/01/21 HPI HPI: this pt presented to the ed with vomiting and nausea with hx of same - he was at [facility] last week for same and had prev gb surg about 2 months ago- he has ongoing sx despite meds in the ed and will be admitted for ivf and treatment Hospital Course Hospital Course: pt has improved with ivf and meds and bowel rest - he reports feeling better - tolerating fluids - no reported pain - and has stable and improved labs and stable exam and vital signs - will d/c to see pcp and gi consult and will add reglan at this time Objective Vital signs: Temp Pulse Resp BP Pulse Ox 98.9 F 89 18 112/64 98 05/01/21 07:32 05/01/21 07:32 05/01/21 07:32 05/01/21 07:32 05/01/21 07:32 no acute distress - *Routine HEENT Exam Head: Present: normocephalic Eye: Present: EOMI, PERRL. Absent: scleral injection, nystagmus ENT: Present: mucous membranes moist - *Routine Neck Exam Present: supple - *Routine Respiratory Exam Present: CTA bilaterally - *Routine Cardiovascular Exam Present: RRR. Absent: murmur - *Routine Abdominal Exam Present: soft. Absent: tenderness - *Routine Extremities Exam Present: pulses intact - *Routine Skin Exam Present: intact - *Routine Neurological Exam Present: alert, oriented X3, CN II-XII intact. Absent: motor deficit - Routine Psychiatric Exam Present: normal affect Results Labs on day of discharge: Labs from last 24 hours 05/01/21 05/01/21 05/01/21 06:26 06:26 06:26 WBC 16.7 H RBC 4.71 Hgb 15.1 Hct 44.7 MCV 95.1 H MCH 32.0 H MCHC 33.7 RDW 14.7 Plt Count 258 D MPV 7.5 Neut % (Auto) 78.0 Lymph % (Auto) 15.5 [place] % (Auto) 5.0 Eos % (Auto) 1.0 Baso % (Auto) 0.5 Neut # (Auto) 13.1 H Lymph # (Auto) 2.6 [place] # (Auto) 0.8 Eos # (Auto) 0.2 Baso # (Auto) 0.1 Total Counted 100 Neutrophils % (Manual) 74 Lymphocytes % (Manual) 18 Monocytes % (Manual) 8 Platelet Estimate Normal RBC Morphology Normal Sodium 142 Potassium 3.4 L Chloride 106 Carbon Dioxide 25 Anion Gap 14.4 BUN 8 L D Creatinine 0.70 D Estimated Creat Clear 137 Estimated GFR 120 Est GFR ( Amer) 146 D Glucose 99 Lactate Calcium 8.2 L D Magnesium 2.0 Total Bilirubin 1.0 AST 29 D ALT 27 D Alkaline Phosphatase 77 Troponin I Total Protein 6.7 D Albumin 4.0 D Globulin 2.7 Albumin/Globulin Ratio 1.5 Triglycerides 152 H Cholesterol 141 LDL Cholesterol Direct 78.84 L VLDL Cholesterol 30 HDL Cholesterol 28 L Cholesterol/HDL Ratio 5.0 H Lipase 62 04/30/21 04/30/21 04/30/21 12:03 12:03 09:25 WBC RBC Hgb Hct MCV MCH MCHC RDW Plt Count MPV Neut % (Auto) Lymph % (Auto) [place] % (Auto) Eos % (Auto) Baso % (Auto) Neut # (Auto) Lymph # (Auto) [place] # (Auto) Eos # (Auto) Baso # (Auto) Total Counted Neutrophils % (Manual) Lymphocytes % (Manual) Monocytes % (Manual) Platelet Estimate RBC Morphology Sodium Potassium Chloride Carbon Dioxide Anion Gap BUN Creatinine Estimated Creat Clear Estimated GFR Est GFR ( Amer) Glucose Lactate 1.2 3.4 H Calcium Magnesium Total Bilirubin AST ALT Alkaline Phosphatase Troponin I < 0.01 Total Protein Albumin Globulin Albumin/Globulin Ratio Triglycerides Cholesterol LDL Cholesterol Direct VLDL Cholesterol HDL Cholesterol Cholesterol/HDL Ratio Lipase 04/30/21 09:25 WBC RBC Hgb Hct MCV MCH MCHC RDW Plt Count MPV Neut % (Auto) Lymph % (Auto) [place] % (Auto) Eos % (Auto) Baso % (Auto) Neut # (Auto) Lymph # (Auto) [place] # (Auto) Eos # (Auto) Baso # (Auto) Total C
== END 2021-05-01 09:21 | disposition home or self-care (01) ==
LOC: ER 09:43 → 2ND 10:44
PROVIDERS: Admitting Provider Emergency Medicine; Emergency Provider Emergency Medicine; Visit Provider Emergency Medicine
DX: R11.2 Nausea with vomiting, unspecified (principal); M06.9 Rheumatoid arthritis, unspecified; Z79.899 Other long term (current) drug therapy
CPT/HCPCS: 74177; 80053; 80061; 80305; 81001; 82140; 82150; 83605; 83690; 83735; 84145; 84484; 85007; 85025; 85651; 86140; 87040; 93005; 96365; 96367; 96375; 99285; 99291; G0378; J2405; Q9967; U0003

== ENCOUNTER 2023-07-22 13:14 | Emergency (ER) | payer MEDICAID, SELFPAY ==
[2023-07-22] VITALS (11 sets, daily range): BP systolic 125–143; BP diastolic 88–96; PULSE 78–90; RESP 16–18; TEMP 36.9; O2SAT 95–100; BMI 22.8
--- NOTE | 2023-07-22 14:46 | CT_ITS ---
PROCEDURE INFORMATION: Exam: CT Abdomen And Pelvis With Contrast Exam date and time: 07/22/2023 3:44 PM Age: 48 years old Clinical indication: Abdominal pain; Localized; Left lower quadrant (llq); Patient HX: Groin pain for 1 week; Additional info: Llq abd pain, n/v/d TECHNIQUE: Imaging protocol: Computed tomography of the abdomen and pelvis with contrast. Radiation optimization: All CT scans at this facility use at least one of these dose optimization techniques: automated exposure control; mA and/or kV adjustment per patient size (includes targeted exams where dose is matched to clinical indication); or iterative reconstruction. Contrast material: ISOVUE; Contrast volume: 75 ml; Contrast route: IV; REPORTING DATA: Count of CT and Cardiac NM exams in prior 12 months: This patient has received 0 known CTs and 0 known cardiac nuclear medicine studies in the 12 months prior to the current study. COMPARISON: CT ABDOMEN PELVIS W CON 04/30/2021 6:30 AM FINDINGS: Lungs: 8 mm cystic space in the right lung base and 10 mm cystic space in the left lung base. Liver: Mild fatty liver. Gallbladder and bile ducts: Cholecystectomy. Pancreas: Normal. No ductal dilation. Spleen: Punctate calcification in the spleen. Adrenal glands: Normal. No mass. Kidneys and ureters: 6 mm stone in the mid to distal left ureter (S1 level), with mild to moderate hydronephrosis and proximal hydroureter. Bilateral nonobstructing kidney calcifications with the largest measuring 3 mm. Stomach and bowel: Gastric wall appears diffusely thickened. Appendix: No evidence of appendicitis. Intraperitoneal space: Unremarkable. No free air. No significant fluid collection. Vasculature: Atherosclerosis. Lymph nodes: Unremarkable. No enlarged lymph nodes. Urinary bladder: Unremarkable as visualized. Reproductive: Unremarkable as visualized. Bones/joints: Unremarkable. No acute fracture. Soft tissues: Small fat containing umbilical hernia. IMPRESSION: 1. 6 mm stone in the mid to distal left ureter (S1 level), with mild to moderate hydronephrosis and proximal hydroureter. 2. Bilateral nonobstructing kidney calcifications with the largest measuring 3 mm. 3. Gastric wall appears diffusely thickened; differential diagnosis includes under distention and/or gastritis. 4. Mild fatty liver. 5. Atherosclerosis.
--- NOTE | 2023-07-22 14:48 | HMH.EDGENADL ---
Discharge Plan Disposition Patient Disposition: Xfer Short-Term Hosp Prescriptions Prescriptions: No Action methotrexate sodium 2.5 MG tablet 2.5 mg PO DAILY folic acid 1 MG tablet 1 mg PO DAILY polyethylene glycol 3350 17 GM powder in packet 17 gm PO DAILY loratadine 10 MG tablet 10 mg PO DAILY metoclopramide HCl 10 MG tablet 10 mg PO QID pantoprazole 40 MG tablet,delayed release (DR/EC) 40 mg PO DAILY prednisone 5 MG tablet 5 mg PO DAILY ondansetron HCl 4 MG tablet 4 mg PO TID Qty: 21 0RF Referrals Follow up/Referrals: Provider,Referral, [Primary Care Provider] - See instructions Clinical Impressions Clinical Impression: Nausea vomiting and diarrhea, Abdominal pain, LLQ Instructions Patient Instructions: DI for Acute Abdominal Pain Discharge ED Provider: Bryant Britt General Adult HPI <Ramu Aleman MD - Last Filed: 07/22/23 14:50> General Chief complaint: Abdominal Pain Stated complaint: vomiting Time Seen by Provider: 07/22/23 13:59 Mode of Arrival: EMS Source of Information: Patient Limitations: No Limitations Description of Symptoms (Recalled from ER Triage Doc. by RN): Presents to ED with c/o LLQ pain and vomiting x2 weeks. Patien reports normal BM's daily but has not been able to eat much. Patient also states he has not been able to taking his daily meds but unsure of what he takes. History of Present Illness HPI narrative: Patient is a 48-year-old male history of arthritis presenting today with left lower quadrant abdominal pain nausea vomiting and diarrhea for the last several days. States that it is predominantly been vomiting but has had diarrhea within the last 24 hours. Denies any significant fevers chills or other systemic illness. No blood in his stool no blood in his vomit. Related Data Home Medications Medication Instructions Recorded Confirmed folic acid 1 mg tablet 1 mg PO DAILY Diet supplement 10/22/19 04/30/21 methotrexate sodium 2.5 mg tablet 2.5 mg PO DAILY Rheumatoid 10/22/19 04/30/21 arthritis loratadine 10 mg tablet 10 mg PO DAILY ALLERGIES 04/30/21 04/30/21 metoclopramide HCl 10 mg tablet 10 mg PO QID STOMACH 04/30/21 04/30/21 pantoprazole 40 mg tablet,delayed 40 mg PO DAILY GERD 04/30/21 04/30/21 release polyethylene glycol 3350 17 gram 17 gm PO DAILY CONSTIPATION 04/30/21 04/30/21 oral powder packet prednisone 5 mg tablet 5 mg PO DAILY INFLAMMATION 04/30/21 04/30/21 Previous Rx's Medication Instructions Recorded ondansetron HCl 4 mg tablet 4 mg PO TID nausea #21 tabs 05/01/21 Allergies Allergy/AdvReac Type Severity Reaction Status Date / Time No Known Allergies Allergy Verified 07/10/18 01:17 [facility] <Ramu Aleman MD - Last Filed: 07/22/23 14:50> [facility] Disclaimer: The information contained in this section may have been updated after the patient was seen, as this information can be updated by other users. Social History Smoking Status: Current every day smoker tobacco type: cigarettes packs per day: 1 alcohol intake: never current occupational status: employed Travel in the last 8 weeks: None household members: significant other housing: house <Ramu Aleman MD - Last Filed: 07/22/23 14:50> ROS Obtained: Yes All systems reviewed & no additional complaints except as documented Physical Exam <Ramu Aleman MD - Last Filed: 07/22/23 14:50> General General appearance: alert Respiratory Respiratory exam: Present normal lung sounds bilaterally; Absent respiratory distress Cardiovascular Cardiovascular exam: Present regular rate; Absent tachycardia Abdominal Exam Abdominal exam: Present soft, distention and tenderness (Left lower quadrant tenderness palpation no rebound or guarding no masses felt) Neurological Exam Neurological exam: Present alert and oriented X3 Medical Decision Making <Ramu Aleman MD - Last Filed: 07/22/23 14:50> Bertin Inquiry Pt receiving c
[2023-07-22 14:56] LABS: Microscopic, Urine URINE MICROSCOPIC (MICROSCOPIC)
[2023-07-22 14:57] LABS: Basophils # 0.1 K/mm3 (0-0.2); Basophils % 0.5 % (0.1-2.0); Chloride 88 mmol/L (98-107); Eosinophils # 0.1 K/mm3 (0.0-0.4); Eosinophils % 0.4 % (0.1-12.0); Hematocrit 52.1 % (42.0-52.0); Hemoglobin 16.8 g/dL (14.1-18.0); Lymphocytes # 2.6 K/mm3 (0.7-4.5); Lymphocytes % 18.2 % (10-50); Mean Corpuscular HGB Conc 32.2 g/dL (31.8-35.4); Mean Corpuscular Hemoglobin 29.3 pg (27.0-31.2); Mean Corpuscular Volume 90.9 fl (80-94); Mean Platelet Volume 8.8 fl (7.4-10.4); Monocytes % 7.1 % (1.7-9.3); Neutrophils # 10.7 K/mm3 (1.8-7.8); Neutrophils % 73.8 % (37.0-80.0); Platelet Count 276 K/mm3 (142-424); Red Blood Count 5.73 M/mm3 (4.60-6.20); Red Cell Distribution Width 15.4 % (11.5-17.5); Sodium 135 mmol/L (136-145); White Blood Count 14.5 K/mm3 (4.8-10.8)
--- NOTE | 2023-07-22 14:57 | PC.NURSE ---
Pt ambulatory to bathroom and back to bed
[2023-07-22 14:58] LABS: Appearance,Urine CLEAR (Clear); Blood, Urine 3+ (Negative); Color,Urine DARK YELLOW (Yellow); Glucose,Urine (UA) Negative (Negative); Ketones,Urine 3+ (Negative); Leukocyte Esterase,Urine TRACE (Negative); Nitrate,Urine Negative (Negative); Protein,Urine 2+ (Negative)
[2023-07-22 14:59] LABS: Alanine Aminotransferase 22 U/L (12-78); Aspartate Amino Transferase 28 U/L (17-59); Blood Urea Nitrogen 12 mg/dl (9-20); Creatinine Clearance Estimated 80 mL/min (50-200); Estimated Glomerular Filt Rate 71 ml/min (>60); GFR (African American) 86 ML/MIN (>60)
[2023-07-22 15:00] LABS: Albumin Level 3.6 g/dl (3.5-5.0); Albumin/Globulin Ratio 1.1 (1.1-1.8); Alkaline Phosphatase 78 U/L (38-126); Anion Gap 12.4 mEq/L (5-15); Bilirubin,Total 0.8 mg/dl (0.2-1.3); Calcium 8.2 mg/dl (8.4-10.2); Carbon Dioxide 37 mmol/L (22.0-30.0); Globulin 3.4 g/dL (1.3-3.2); Glucose 93 mg/dl (74-100); Lipase 154 U/L (23-300)
[2023-07-22 15:05] LABS: Potassium 2.4 mmoL/L (3.5-5.1)
--- NOTE | 2023-07-22 15:07 | PC.NURSE ---
Rounded on patient; nothing needed at this time. Call light within reach;warm blanket provided to patient
[2023-07-22 15:19] LABS: Bacteria,Urine Trace /lpf; Bilirubin,Urine 2+ (Negative); RBC,Urine 20-50 #/hpf (0-3)
--- NOTE | 2023-07-22 15:55 | PC.NURSE ---
PT back from CT; patient reports he is still in pain. Call light within reach of patient
--- NOTE | 2023-07-22 16:01 | PC.NURSE ---
notified of patient reported pain.
--- NOTE | 2023-07-22 16:11 | ECG_ITS ---
APPROVED REPORT Exam: Resting ECG HR:74 bpm ECG Measurements Heart Rate 74 AXES WY 148 P 49 QRSd 101 QRS -82 QT 432 T 3 QTc 460 Conclusion SINUS RHYTHM LEFT AXIS DEVIATION [QRS AXIS < -30] NONSPECIFIC ST ELEVATION [0.05+ mV ST ELEVATION] ABNORMAL ECG UNCONFIRMED REPORT Electronically signed by : Ludwin Milligan MD 07/24/2023 20:07:26
--- NOTE | 2023-07-22 16:14 | PC.NURSE ---
Rounded on patient call light within reach of patient.
--- NOTE | 2023-07-22 16:31 | PC.NURSE ---
placed call to [facility] for urology, they are calling [facility] for availability.
--- NOTE | 2023-07-22 17:04 | PC.NURSE ---
Rounded on patient; patient reports his pain has still not improved. MD notified. Call light within reach
--- NOTE | 2023-07-22 17:12 | PC.NURSE ---
pt to go to [facility] for admission to dr arizmendi. room #147 nurse call to [phone]
--- NOTE | 2023-07-22 18:05 | PC.NURSE ---
Rounded on patient; nothing needed at this time. Call light within reach of patient
--- NOTE | 2023-07-22 19:08 | PC.NURSE ---
Osvaldo Banegas called for a pt update, pt gave consent for update to be given. She was notified of pt's pending transfer to [facility] d/t kidney stone and urology needs. States her understanding.
--- NOTE | 2023-07-22 19:47 | PC.NURSE ---
pt given broth per request. discussed plan of care with patient. patient aware of impending transfer. Md keron STRAUSS
--- NOTE | 2023-07-23 08:23 | PC.NURSE ---
Pt's called to check where my went . I had updated her yesterday regarding his transfer to [facility] in [place], [place]. I gave her the phone number to [facility] to get an update.
== END 2023-07-22 20:17 | disposition short-term general hospital (02) ==
PROVIDERS: Student in an Organized Health Care Education/Training Program; Emergency Provider Emergency Medicine
DX: R10.32 Left lower quadrant pain (principal); R11.2 Nausea with vomiting, unspecified; R19.7 Diarrhea, unspecified; F17.210 Nicotine dependence, cigarettes, uncomplicated
CPT/HCPCS: 74177; 80053; 81001; 83690; 85025; 93005; 96361; 96365; 96375; 99285; J0696; J2405; Q9967

== ENCOUNTER 2024-01-19 22:30 | Emergency (ER) | payer MEDICAID, SELFPAY ==
[2024-01-19 22:59] VITALS: BP 135/95; PULSE 72; RESP 19; TEMP 36.8; O2SAT 98; BMI 22.1
--- NOTE | 2024-01-19 23:00 | CT_ITS ---
PROCEDURE INFORMATION: Exam: CT Abdomen And Pelvis With Contrast Exam date and time: 01/19/2024 11:30 PM Age: 48 years old Clinical indication: Abdominal pain; Additional info: Abd pain, passed one kidney stone today, emesis TECHNIQUE: Imaging protocol: Computed tomography of the abdomen and pelvis with contrast. Radiation optimization: All CT scans at this facility use at least one of these dose optimization techniques: automated exposure control; mA and/or kV adjustment per patient size (includes targeted exams where dose is matched to clinical indication); or iterative reconstruction. Contrast material: ISOVUE; Contrast volume: 75 ml; Contrast route: IV; COMPARISON: CT ABDOMEN PELVIS W CON 07/22/2023 3:44 PM FINDINGS: Liver: Liver measures 21 cm. Gallbladder and bile ducts: Surgically absent gallbladder. Pancreas: Normal. No ductal dilation. Spleen: Normal. No splenomegaly. Adrenal glands: Normal. No mass. Kidneys and ureters: Bilateral nonobstructive renal calculi measuring up to 0.3 cm. No ureterolithiasis identified. Stomach and bowel: Unremarkable. No obstruction. No mucosal thickening. Appendix: No evidence of appendicitis. Intraperitoneal space: Unremarkable. No free air. No significant fluid collection. Vasculature: Mild atherosclerotic calcification of aortoiliac arteries. Lymph nodes: Unremarkable. No enlarged lymph nodes. Urinary bladder: No urinary bladder calculus identified. Concentric urinary bladder wall thickening without pericystic fat stranding. Reproductive: Unremarkable as visualized. Bones/joints: Unremarkable. No acute fracture. Soft tissues: Unremarkable. IMPRESSION: 1. Bilateral nonobstructive renal calculus without ureterolithiasis or urinary bladder calculus. 2. Concentric urinary bladder wall thickening without pericystic fat stranding, possibly reflecting sequela of prostatism. Can not exclude low-grade cystitis, although less likely. 3. Hepatomegaly.
--- NOTE | 2024-01-19 23:02 | [facility].EDGENADL ---
Discharge Plan Disposition Patient Disposition: Home, Self-Care Condition: Good Prescriptions Prescriptions: No Action methotrexate sodium 2.5 MG tablet 2.5 mg PO DAILY folic acid 1 MG tablet 1 mg PO DAILY polyethylene glycol 3350 17 GM powder in packet 17 gm PO DAILY loratadine 10 MG tablet 10 mg PO DAILY metoclopramide HCl 10 MG tablet 10 mg PO QID pantoprazole 40 MG tablet,delayed release (DR/EC) 40 mg PO DAILY prednisone 5 MG tablet 5 mg PO DAILY ondansetron HCl 4 MG tablet 4 mg PO TID Qty: 21 0RF Referrals Follow up/Referrals: Tnoi Zapien [Primary Care Provider] - See instructions Activity Restrictions/Add. Instructions Additional Instructions/Restrictions: You were evaluated in the ER. You are appropriate for discharge at this time. Continue taking your home medications as previously prescribed. Make an appointment with your primary care physician for reevaluation in 2-3 days. Return to the ER with new, worsening, or otherwise concerning symptoms. Clinical Impressions Clinical Impression: Acute right flank pain, Acute suprapubic pain Cough Qualifiers: Cough type: acute Qualified Code(s): R05.1 - Acute cough Discharge ED Provider: Sima Rothman General Adult HPI General Chief complaint: Urogenital-Male Stated complaint: cough, vomiting, abd pain, Time Seen by Provider: 01/19/24 22:53 History of Present Illness HPI narrative: 48-year-old male with history of prior kidney stones requiring lithotripsy, rheumatoid arthritis, long-term history of GERD with chronic emesis presents to the ER with concerns of abdominal pain, passing 1 kidney stone today, dysuria, and few episodes of emesis. Patient was hospitalized approximately 1 week ago and after coming home from the hospital had a viral upper respiratory infection. He has also had slightly increased emesis from his baseline since that time. He is able to tolerate some oral intake. In the last 24 hours patient developed dysuria and earlier today passed a stone. He states he has some pain in the shaft of the penis currently but does not feel a knot like he felt earlier when he passed the stone. Patient states the majority of his pain is over the bladder. Patient and family report fevers but do not have a working thermometer at home. Related Data Home Medications Medication Instructions Recorded Confirmed folic acid 1 mg tablet 1 mg PO DAILY Diet supplement 10/22/19 04/30/21 methotrexate sodium 2.5 mg tablet 2.5 mg PO DAILY Rheumatoid 10/22/19 04/30/21 arthritis loratadine 10 mg tablet 10 mg PO DAILY ALLERGIES 04/30/21 04/30/21 metoclopramide HCl 10 mg tablet 10 mg PO QID STOMACH 04/30/21 04/30/21 pantoprazole 40 mg tablet,delayed 40 mg PO DAILY GERD 04/30/21 04/30/21 release polyethylene glycol 3350 17 gram 17 gm PO DAILY CONSTIPATION 04/30/21 04/30/21 oral powder packet prednisone 5 mg tablet 5 mg PO DAILY INFLAMMATION 04/30/21 04/30/21 Previous Rx's Medication Instructions Recorded ondansetron HCl 4 mg tablet 4 mg PO TID nausea #21 tabs 05/01/21 Allergies Allergy/AdvReac Type Severity Reaction Status Date / Time No Known Allergies Allergy Verified 07/10/18 01:17 [facility] Disclaimer: The information contained in this section may have been updated after the patient was seen, as this information can be updated by other users. Social History Smoking Status: Unknown if ever smoked alcohol intake: never current occupational status: employed Travel in the last 8 weeks: None household members: significant other housing: house ROS Obtained: Yes All systems reviewed & no additional complaints except as documented Constitutional Constitutional: Denies chills, Reports fever(s), Denies headache(s) and Denies weakness Eyes Eyes: Denies change in vision ENT Ears, Nose, Mouth, and Throat: Denies dizziness, Denies headache(s), Denies nasal congestion and Denies sore throat Cardiovascular Cardiovascular: Denies chest pain, Denies dyspnea and Denies leg edema Respiratory Respiratory: Denies cough and Denies dyspnea Gastrointestinal Gastrointestingal: Reports abdominal pain, nausea and vomiting; Denies constipation or diarrhea Genitourinary Male Genitourinary: Denies difficulty urinating and Denies hematuria Comments: Passed stone earlier today, positive for pain in the penis, positive for dysuria Musculoskeletal Musculoskeletal: Denies arthralgias, Denies myalgias, Denies numbness and Denies tingling Integumentary/Breasts Skin/Breast: Denies change in pigmentation Neurologic Neurologic: Denies dizziness, Denies headache(s), Denies numbness, Denies tingling and Denies weakness Physical Exam General General appearance: alert and in no apparent distress Head Head exam: atraumatic and normocephalic Eye Eye exam: Present PERRL and EOMI ENT ENT exam: Present mucous membranes moist Neck Neck exam: Present normal inspection and full ROM Chest Chest inspection: Present symmetric chest wall rise Respiratory Respiratory exam: Present normal lung sounds bilaterally; Absent respiratory distress, wheezes or stridor Cardiovascular Cardiovascular exam: Present regular rate and normal rhythm Abdominal Exam Abdominal exam: Present soft and tenderness (Mild suprapubic); Absent distention, guarding or rebound exam: Present normal inspection, normal testicular lie, circumcised and other (Mild tenderness along the inferior aspect of midshaft of the penis without any palpable mass, no swelling, no bruising, no signs of injury. No blood at the meatus); Absent testicular tenderness, urethral discharge or scrotal swelling Extremities Exam Extremities exam: Present full ROM Back Exam Back exam: Present CVA tenderness (R) (Mild); Absent CVA tenderness (L) Neurological Exam Neurological exam: Present alert and oriented X3; Absent motor sensory deficit Psychiatric Psychiatric exam: Present normal affect and normal mood Skin Skin exam: Present warm and dry Medical Decision Making Bertin Inquiry Pt receiving controlled substance: No Vital Signs: 01/19/24 22:59 01/20/24 00:46 01/20/24 01:00 Temperature 98.3 F Temperature Source Oral Pulse Rate 90 94 H Pulse Rate [Right Brachial] 72 Respiratory Rate 19 Blood Pressure 151/87 H 134/86 Blood Pressure [Right Arm] 135/95 H Blood Pressure Mean 98 103 Blood Pressure Mean [Right Arm] 108 Blood Pressure Source [Right Arm] Automatic Cuff Blood Pressure Position [Right Arm] Sitting 02 Sat by Pulse Oximetry 98 90 L 90 L Oxygen Delivery Method Room Air Lab Data Lab Results 01/19/24 22:50: Urine Color Yellow, Urine Appearance Clear, Urine pH 6.0, Ur Specific [place] <= 1.005, Urine Protein Negative, Urine Glucose (UA) Negative, Urine Ketones Negative, Urine Blood Negative, Urine Nitrate Negative, Urine Bilirubin Negative, Urine Urobilinogen 0.2, Ur Leukocyte Esterase Negative, Urine RBC None, Urine WBC None, Ur Squamous Epith Cells None, Urine Bacteria None 01/19/24 23:06: WBC 15.6 H, RBC 4.58 L, Hgb 15.5, Hct 46.7, MCV 102.0 H, MCH 33.9 H, MCHC 33.3, RDW 15.4, Plt Count 351, MPV 7.8, Neut % (Auto) 74.1, Lymph % (Auto) 18.2, [place] % (Auto) 4.1, Eos % (Auto) 2.2, Baso % (Auto) 1.4, Neut # (Auto) 11.6 H, Lymph # (Auto) 2.8, [place] # (Auto) 0.6, Eos # (Auto) 0.3, Baso # (Auto) 0.2, Total Counted 100, Neutrophils % (Manual) 67, Lymphocytes % (Manual) 30, Monocytes % (Manual) 3, Platelet Estimate Normal, RBC Morphology Normal, Sodium 140, Potassium 3.5, Chloride 103, Carbon Dioxide 35 H, Anion Gap 5.5, BUN 9, Creatinine 0.70, Estimated Creat Clear 121, Estimated GFR 119, Est GFR ( Amer) 144, Glucose 110 H, Calcium 9.4, Total Bilirubin 0.4, AST 25, ALT 19, Alkaline Phosphatase 85, Total Protein 7.4, Albumin 4.3, Globulin 3.1, Albumin/Globulin Ratio 1.4 01/19/24 23:06 01/19/24 23:06 Orders (Tests/Meds): ED MEDICATIONS Discontinued Medications Generic Name Dose Route Start Last Admin Trade Name Franklin PRN Reason Stop Dose Admin Lactated Ringer's 1,000 mls @ 999 mls/hr 01/19/24 23:00 01/19/24 23:11 Lactated Ringer's 1000 Ml Bag IV 01/20/24 00:00 999 mls/hr .Q1H1M ONE Administration Iopamidol 75 ml 01/19/24 23:40 01/19/24 23:41 Iopamidol-370 (76%);100ml Bottle IV 01/19/24 23:41 75 ml ONCE ONE Administration Morphine Sulfate 4 mg 01/19/24 23:00 01/19/24 23:12 Morphine 4mg/Ml Syringe IV 01/19/24 23:01 4 mg ONCE ONE Administration Ondansetron HCl 4 mg 01/19/24 23:00 01/19/24 23:12 Ondansetron 4mg/2ml Vial IV 01/19/24 23:01 4 mg ONCE ONE Administration Sodium Chloride 10 ml 01/19/24 23:40 01/19/24 23:41 Sodium Chloride 0.9% 10ml Syr (Rad Only) IV 01/19/24 23:41 10 ml ONCE ONE Administration ORDERS Category Date Time Status CT abdomen pelvis w con Stat Cat Scan 01/19/24 23:00 Completed CXR --portable [XR chest portable] Stat Exams 01/19/24 23:59 Completed CBC w/Auto Diff [Complete Blood Count Auto Diff] Stat Lab 01/19/24 23:06 Completed CMP [Comprehensive Metabolic Panel] Stat Lab 01/19/24 23:06 Completed Urinalysis and Microscopic Stat Lab 01/19/24 22:50 Completed Medical Decision Narrative: In summary, this 48year old male presents to the emergency department today with abdominal pain, passed kidney stone, dysuria, and emesis. On initial evaluation patient is hemodynamically stable, afebrile, resting comfortably, he has mild right CVA tenderness, mild suprapubic abdominal tenderness without rebound or guarding, nonacute abdomen, exam does not demonstrate any findings of torsion, no palpable mass within the penile shaft, no blood at the meatus, patient was already able to urinate in the ER prior to my evaluation. Differential diagnosis includes but is not limited to nephrolithiasis, ureterolithiasis, bladder stone, urinary tract infection, considered infected stone though I have lower suspicion for this, also considered electrolyte abnormality, dehydration, and exacerbation of patient's chronic gastric symptoms. Based on these concerns, I ordered urine studies, CT abdomen pelvis, basic labs. Patient received IV fluids, IV morphine, Zofran for treatment. Labs personally reviewed demonstrate mild leukocytosis with WBC 15.6, nonspecific, no anemia, sodium, potassium, chloride normal, no findings of liver dysfunction, no kidney dysfunction, BUN and creatinine normal at 9, 0.7, respectively. UA negative for signs of infection. XR personally interpreted demonstrates no acute intrathoracic abnormality, no pneumonia, see radiology read for final interpretation. CT imaging personally interpreted demonstrate no acute intra-abdominal pathology, no bowel obstruction, no obvious ureterolithiasis, no hydronephrosis. There are bilateral nephrolithiasis. See radiology read for final interpretation. On reassessment patient remains stable. I reviewed results with him and family at bedside. They are reassured by our workup. He has tolerated oral intake and ambulated successfully. He is appropriate for discharge at this time. He does not require any new prescriptions. Patient was given instructions on symptomatic management, follow up instructions, and return precautions for the emergency department. Patient indicated understanding and was discharged in stable condition. Critical Care Critical Care Time Critical Care Time: No
[2024-01-19 23:05] LABS: Microscopic, Urine URINE MICROSCOPIC (MICROSCOPIC)
[2024-01-19] MEDS: LACTATED RINGERS 1000ML 1,000 ML 999 ML IV (23:11)
[2024-01-19] MEDS: ONDANSETRON 4MG/2ML VIAL 4 MG IV (23:12)
[2024-01-19] MEDS: MORPHINE 4MG/ML SYRINGE 4 MG IV (23:12)
[2024-01-19 23:16] LABS: Appearance,Urine CLEAR (Clear); Bilirubin,Urine Negative (Negative); Blood, Urine Negative (Negative); Color,Urine YELLOW (Yellow); Glucose,Urine (UA) Negative (Negative); Ketones,Urine Negative (Negative); Leukocyte Esterase,Urine Negative (Negative); Nitrate,Urine Negative (Negative); Protein,Urine Negative (Negative); Specific Gravity, Urine <= 1.005 (1.005-1.030); Urobilinogen,Urine 0.2 EU/dl (0.2)
[2024-01-19 23:18] LABS: Basophils # 0.2 K/mm3 (0-0.2); Basophils % 1.4 % (0.1-2.0); Eosinophils # 0.3 K/mm3 (0.0-0.4); Eosinophils % 2.2 % (0.1-12.0); Hematocrit 46.7 % (42.0-52.0); Hemoglobin 15.5 g/dL (14.1-18.0); Lymphocytes # 2.8 K/mm3 (0.7-4.5); Lymphocytes % 18.2 % (10-50); Mean Corpuscular HGB Conc 33.3 g/dL (31.8-35.4); Mean Corpuscular Hemoglobin 33.9 pg (27.0-31.2); Mean Platelet Volume 7.8 fl (7.4-10.4); Monocytes # 0.6 K/mm3 (0.1-1.0); Monocytes % 4.1 % (1.7-9.3); Neutrophils # 11.6 K/mm3 (1.8-7.8); Neutrophils % 74.1 % (37.0-80.0); Platelet Count 351 K/mm3 (142-424); Red Blood Count 4.58 M/mm3 (4.60-6.20); Red Cell Distribution Width 15.4 % (11.5-17.5); White Blood Count 15.6 K/mm3 (4.8-10.8)
[2024-01-19 23:19] LABS: MANUAL DIFFERENTIAL MANUAL DIFFERENTIAL (MANUAL DIFF)
[2024-01-19 23:22] LABS: Chloride 103 mmol/L (98-107); Potassium 3.5 mmoL/L (3.5-5.1); Sodium 140 mmol/L (136-145)
[2024-01-19 23:24] LABS: Blood Urea Nitrogen 9 mg/dl (9-20); Creatinine Clearance Estimated 121 mL/min (50-200); Estimated Glomerular Filt Rate 119 ml/min (>60); GFR (African American) 144 ML/MIN (>60)
[2024-01-19 23:25] LABS: Alanine Aminotransferase 19 U/L (12-78); Albumin Level 4.3 g/dl (3.5-5.0); Albumin/Globulin Ratio 1.4 (1.1-1.8); Alkaline Phosphatase 85 U/L (38-126); Anion Gap 5.5 mEq/L (5-15); Aspartate Amino Transferase 25 U/L (17-59); Bilirubin,Total 0.4 mg/dl (0.2-1.3); Calcium 9.4 mg/dl (8.4-10.2); Carbon Dioxide 35 mmol/L (22.0-30.0); Globulin 3.1 g/dL (1.3-3.2); Glucose 110 mg/dl (74-100); Total Protein,Serum 7.4 g/dl (6.3-8.2)
[2024-01-19] MEDS: SODIUM CHLORIDE 0.9% 10ML SYR (RAD ONLY) 10 ML IV (23:41)
[2024-01-19] MEDS: IOPAMIDOL-370 (76%);100ML BOTTLE 75 ML IV (23:41)
[2024-01-19 23:47] LABS: Lymphocytes % 30 % (10-50); Monocytes % 3 % (2-9); Neutrophils % 67 % (42-76); Platelet Estimate Normal; RBC Morphology Normal; Total Cells Counted 100
--- NOTE | 2024-01-19 23:59 | XR_ITS ---
PROCEDURE INFORMATION: Exam: XR Chest Exam date and time: 01/20/2024 12:03 AM Age: 48 years old Clinical indication: Cough TECHNIQUE: Imaging protocol: Radiologic exam of the chest. Views: 1 view. COMPARISON: CR XR CHEST 2V 10/21/2019 10:31 PM FINDINGS: Lungs: Unremarkable. No consolidation. Stable benign left mid lung zone calcified granuloma. Pleural spaces: Unremarkable. No pleural effusion. No pneumothorax. Heart/Mediastinum: Unremarkable. No cardiomegaly. Bones/joints: Unremarkable. IMPRESSION: No acute findings.
[2024-01-20 00:46] VITALS: BP 151/87; PULSE 90; O2SAT 90
[2024-01-20 01:00] VITALS: BP 134/86; PULSE 94; O2SAT 90
[2024-01-20 01:36] VITALS: BP 134/86; PULSE 94; RESP 20; TEMP 36.7; O2SAT 92
== END 2024-01-20 01:37 | disposition home or self-care (01) ==
PROVIDERS: Emergency Provider Emergency Medicine; PCP Family Medicine
DX: R10.31 Right lower quadrant pain (principal); R10.2 Pelvic and perineal pain; R05.1 Acute cough; K21.9 Gastro-esophageal reflux disease without esophagitis; M06.9 Rheumatoid arthritis, unspecified; Z87.442 Personal history of urinary calculi
CPT/HCPCS: 71045; 74177; 80053; 81001; 85007; 85025; 96361; 96374; 96375; 99285; J2405; Q9967

== ENCOUNTER 2024-02-20 03:36 | Emergency (ER) | payer MEDICAID, SELFPAY ==
[2024-02-20] VITALS (16 sets, daily range): BP systolic 96–149; BP diastolic 63–105; PULSE 76–97; RESP 15–25; TEMP 36.6; O2SAT 93–99; BMI 25.8
--- NOTE | 2024-02-20 03:44 | ECG_ITS ---
APPROVED REPORT Exam: Resting ECG HR:74 bpm ECG Measurements Heart Rate 74 AXES [place] 168 P 66 QRSd 120 QRS -79 QT 453 T 81 QTc 481 Conclusion SINUS RHYTHM WITH OCCASIONAL SUPRAVENTRICULAR PREMATURE COMPLEXES LEFT ANTERIOR FASCICULAR BLOCK [QRS AXIS <= -45, QR IN I, RS IN II] NONSPECIFIC T-WAVE ABNORMALITY PROLONGED QT INTERVAL -previous QTc 460 in June 2023 ABNORMAL ECG No STEMI Electronically signed by : JORGE COLON, 02/20/2024 05:29:50
[2024-02-20] MEDS: NALOXONE 2MG/2ML SYRINGE 1 MG IV (04:01)
[2024-02-20] MEDS: LACTATED RINGERS 1000ML 1,000 ML 999 ML IV (04:03)
--- NOTE | 2024-02-20 04:04 | ED_ITS ---
Discharge Plan Disposition Patient Disposition: Still a Patient Prescriptions Prescriptions: No Action methotrexate sodium 2.5 MG tablet 2.5 mg PO DAILY folic acid 1 MG tablet 1 mg PO DAILY polyethylene glycol 3350 17 GM powder in packet 17 gm PO DAILY loratadine 10 MG tablet 10 mg PO DAILY metoclopramide HCl 10 MG tablet 10 mg PO QID pantoprazole 40 MG tablet,delayed release (DR/EC) 40 mg PO DAILY prednisone 5 MG tablet 5 mg PO DAILY ondansetron HCl 4 MG tablet 4 mg PO TID Qty: 21 0RF Referrals Follow up/Referrals: Provider,Referral, [Primary Care Provider] - See instructions Clinical Impressions Clinical Impression: Suicidal ideation, Overdose Discharge ED Provider: Asim Mena Adult HPI <Sima Rothman MD - Last Filed: 02/20/24 06:55> General Chief complaint: Overdose Stated complaint: Suicide attempt Time Seen by Provider: 02/20/24 03:50 Mode of Arrival: EMS Source of Information: EMS Limitations: No Limitations Description of Symptoms (Recalled from ER Triage Doc. by RN): Pt brought in by [facility] after pt overdosed on trazadone and tizanidine with intent to harm self. Pt has SI hx, recent admit to [facility] per EMS. Pt complains of chronic abdominal pain and RA, tired of being in pain and wants to . EMS states pt vomited on scene, 1mg narcan given. Pt is A/O to self, place and time. Pt VSS, he refuses to talk to Dr or staff at this time. History of Present Illness HPI narrative: 48-year-old male presents to the ER with concerns of suicidal ideation, suicide attempt by taking trazodone and tizanidine. Patient has had multiple inpatient admissions for suicidal ideations and attempts previously according to EMS who provides history. They state patient started taking pills around 2 hours prior to arrival. Family tried stopping him multiple times. They state that family has seen him attempted suicide previously. EMS states patient had 1 episode of emesis on scene that was white, but could not identify any pills. 1 mg of Narcan was administered on scene due to pinpoint pupils. Patient had some improvement of his alertness after receiving Narcan. Patient is oriented but otherwise refuses to answer questions. Related Data Home Medications Medication Instructions Recorded Confirmed folic acid 1 mg tablet 1 mg PO DAILY Diet supplement 10/22/19 04/30/21 methotrexate sodium 2.5 mg tablet 2.5 mg PO DAILY Rheumatoid 10/22/19 04/30/21 arthritis loratadine 10 mg tablet 10 mg PO DAILY ALLERGIES 04/30/21 04/30/21 metoclopramide HCl 10 mg tablet 10 mg PO QID STOMACH 04/30/21 04/30/21 pantoprazole 40 mg tablet,delayed 40 mg PO DAILY GERD 04/30/21 04/30/21 release polyethylene glycol 3350 17 gram 17 gm PO DAILY CONSTIPATION 04/30/21 04/30/21 oral powder packet prednisone 5 mg tablet 5 mg PO DAILY INFLAMMATION 04/30/21 04/30/21 Previous Rx's Medication Instructions Recorded ondansetron HCl 4 mg tablet 4 mg PO TID nausea #21 tabs 05/01/21 Allergies Allergy/AdvReac Type Severity Reaction Status Date / Time No Known Allergies Allergy Verified 07/10/18 01:17 [facility] <Sima Rothman MD - Last Filed: 02/20/24 06:55> [facility] Disclaimer: The information contained in this section may have been updated after the patient was seen, as this information can be updated by other users. Social History Smoking Status: Current every day smoker tobacco type: cigarettes packs per day: 1 alcohol intake: never current occupational status: employed Travel in the last 8 weeks: None household members: significant other housing: house <Sima Rothman MD - Last Filed: 02/20/24 06:55> ROS Obtained: Yes unobtainable due to mental condition (Patient refusing to participate in review of systems, denies pain) Physical Exam <Sima Rothman MD - Last Filed: 02/20/24 06:55> General General appearance: in no apparent distress, appears intoxicated and other (easily arousable but sleepy) Head Head exam: atraumatic and normocephalic Eye Eye exam: Present PERRL (pupils pinpoint on arrival) and EOMI; Absent scleral icterus ENT ENT exam: Present mucous membranes moist Neck Neck exam: Present full ROM and trachea midline; Absent lymphadenopathy Chest Chest inspection: Present normal inspection and symmetric chest wall rise; Absent tenderness Respiratory Respiratory exam: Present normal lung sounds bilaterally; Absent respiratory distress, wheezes or stridor Cardiovascular Cardiovascular exam: Present regular rate, normal rhythm and other (2+ pulses in all extremities) Abdominal Exam Abdominal exam: Present soft; Absent distention or tenderness Extremities Exam Extremities exam: Present other (no findings of trauma) Neurological Exam Neurological exam: Present oriented X3 and other (slow to respond to questions. states I don't want to talk ) Expanded Neurological Exam Patient oriented to: Present person, place and time Motor strength - LUE: 5/5 Motor strength - RUE: 5/5 Motor strength - LLE: 5/5 Motor strength - RLE: 5/5 Coma scale eye opening: To voice Coma scale motor response: Obeys commands Coma scale verbal response: Oriented Coma scale total: 14 Psychiatric Psychiatric exam: Present suicidal ideation (will not answer questions but told family he was sick of living in pain and wanted to ) Skin Skin exam: Present warm and dry <Asim Mena MD - Last Filed: 02/21/24 16:15> Expanded Neurological Exam Coma scale total: 14 Medical Decision Making <Sima Rothman MD - Last Filed: 02/20/24 06:55> Bertin Inquiry Pt receiving controlled substance: No Vital Signs: 02/20/24 03:36 02/20/24 04:02 02/20/24 04:30 Temperature 97.8 F Temperature Source Oral Pulse Rate 76 79 Pulse Rate [Left] 76 Respiratory Rate 16 20 18 Blood Pressure 120/63 134/81 Blood Pressure [Right Arm] 106/73 L Blood Pressure Mean 82 93 Blood Pressure Mean [Right Arm] 84 Blood Pressure Source [Right Arm] Automatic Cuff Blood Pressure Position [Right Arm] Sitting 02 Sat by Pulse Oximetry 94 L 99 97 Oxygen Delivery Method Room Air Room Air Room Air 02/20/24 05:00 02/20/24 05:31 02/20/24 06:00 Temperature Temperature Source Pulse Rate 85 90 94 H Pulse Rate [Left] Respiratory Rate 20 20 18 Blood Pressure 127/81 137/88 149/87 H Blood Pressure [Right Arm] Blood Pressure Mean 97 104 107 Blood Pressure Mean [Right Arm] Blood Pressure Source [Right Arm] Blood Pressure Position [Right Arm] 02 Sat by Pulse Oximetry 98 97 93 L Oxygen Delivery Method Room Air Room Air Room Air 02/20/24 06:30 02/20/24 07:00 02/20/24 07:30 Temperature Temperature Source Pulse Rate 97 H 89 Pulse Rate [Left] Respiratory Rate 20 23 Blood Pressure 138/81 135/88 134/81 Blood Pressure [Right Arm] Blood Pressure Mean 100 100 Blood Pressure Mean [Right Arm] Blood Pressure Source [Right Arm] Blood Pressure Position [Right Arm] 02 Sat by Pulse Oximetry 94 L 95 Oxygen Delivery Method Room Air Room Air 02/20/24 08:00 02/20/24 08:31 02/20/24 09:00 Temperature Temperature Source Pulse Rate 89 91 H 90 Pulse Rate [Left] Respiratory Rate 25 H 25 H 15 Blood Pressure 137/82 96/77 L 148/93 H Blood Pressure [Right Arm] Blood Pressure Mean Blood Pressure Mean [Right Arm] Blood Pressure Source [Right Arm] Blood Pressure Position [Right Arm] 02 Sat by Pulse Oximetry 94 L 97 95 Oxygen Delivery Method Room Air Room Air Room Air 02/20/24 09:45 02/20/24 10:00 02/20/24 11:00 Temperature Temperature Source Pulse Rate 83 91 H Pulse Rate [Left] Respiratory Rate 18 17 Blood Pressure 127/105 H 139/76 115/71 Blood Pressure [Right Arm] Blood Pressure Mean 99 Blood Pressure Mean [Right Arm] Blood Pressure Source [Right Arm] Blood Pressure Position [Right Arm] 02 Sat by Pulse Oximetry 97 96 Oxygen Delivery Method Room Air 02/20/24 11:41 Temperature 97.8 F Temperature Source Oral Pulse Rate 91 H Pulse Rate [Left] Respiratory Rate 16 Blood Pressure 128/72 Blood Pressure [Right Arm] Blood Pressure Mean Blood Pressure Mean [Right Arm] Blood Pressure Source [Right Arm] Blood Pressure Position [Right Arm] 02 Sat by Pulse Oximetry Oxygen Delivery Method Room Air Lab Data Lab Results 02/20/24 03:48: WBC 10.0, RBC 3.98 L, Hgb 13.4 L, Hct 39.8 L, MCV 100.0 H, MCH 33.6 H, MCHC 33.6, RDW 15.0, Plt Count 268, MPV 8.0, Neut % (Auto) 60.4, Lymph % (Auto) 29.6, [place] % (Auto) 6.7, Eos % (Auto) 1.4, Baso % (Auto) 1.9, Neut # (Auto) 6.1, Lymph # (Auto) 3.0, [place] # (Auto) 0.7, Eos # (Auto) 0.1, Baso # (Auto) 0.2, PT 10.6, INR 0.98, Sodium 139, Potassium 3.1 L, Chloride 105, Carbon Dioxide 30, Anion Gap 7.1, BUN 10, Creatinine 0.60 L, Estimated Creat Clear 165, Estimated GFR 143, Est GFR ( Amer) 173, Glucose 120 H, Calcium 8.7, Magnesium 1.9, Total Bilirubin 0.3, AST 23, ALT 15, Alkaline Phosphatase 66, Total Protein 6.3, Albumin 3.5, Globulin 2.8, Albumin/Globulin Ratio 1.3, S alicylates < 1.0 L, Acetaminophen < 10 L, Plasma/Serum Alcohol < 10 02/20/24 04:40: Urine Opiates Screen Negative, Urine Methadone Screen Negative, Ur Barbituates Screen Positive H, Ur Phencyclidine Scrn Negative, Ur Amphetamines Screen Negative, U Benzodiazepines Scrn Negative, Urine Cocaine Screen Negative, U Marijuana (THC) Screen Positive H 02/20/24 03:48 02/20/24 03:48 Orders (Tests/Meds): ED MEDICATIONS Discontinued Medications Generic Name Dose Route Start Last Admin Trade Name Freq PRN Reason Stop Dose Admin Lactated Ringer's 1,000 mls @ 999 mls/hr 02/20/24 03:52 02/20/24 04:03 Lactated Ringer's 1000 Ml Bag IV 02/20/24 04:52 999 mls/hr .Q1H1M ONE Administration Potassium Chloride/Water 100 mls @ 50 mls/hr 02/20/24 05:06 02/20/24 08:10 Potassium Chloride 20meq/100ml Ivpb IV 02/20/24 09:05 50 mls/hr Q2H KATHERINE Administration Magnesium Sulfate 0.5 gm in 12.5 mls @ 50 mls/hr 02/20/24 05:30 02/20/24 05:23 Magnesium Sulfate 2gm/50ml Premix IV 02/20/24 05:44 50 mls/hr ONCE ONE Administration Magnesium Sulfate 0.5 gm 02/20/24 05:07 02/20/24 07:06 Magnesium Sulfate 1gm/2ml Vial IM 02/20/24 05:08 Not Given ONCE ONE Naloxone HCl 1 mg 02/20/24 04:00 02/20/24 04:01 Naloxone 2mg/2ml Syringe IV 02/20/24 04:01 1 mg ONCE ONE Administration Ondansetron HCl 4 mg 02/20/24 08:03 02/20/24 08:08 Ondansetron 4mg/2ml Vial IV 02/20/24 08:04 4 mg ONCE ONE Administration Potassium Chloride 40 meq 02/20/24 05:04 02/20/24 05:19 Potassium Chloride 20meq Tab PO 02/20/24 05:05 40 meq ONCE ONE Administration Sodium Bicarbonate 100 meq 02/20/24 04:23 02/20/24 04:40 Sodium Bicarb 8.4% 50ml Syringe (Crash Cart) IV 02/20/24 04:24 100 meq ONCE ONE Administration ORDERS Category Date Time Status Acetaminophen Stat Lab 02/20/24 03:48 Completed CBC w/Auto Diff [Complete Blood Count Auto Diff] Stat Lab 02/20/24 03:48 Completed CMP [Comprehensive Metabolic Panel] Stat Lab 02/20/24 03:48 Completed Ethyl Alcohol Stat Lab 02/20/24 03:48 Completed Magnesium Stat Lab 02/20/24 03:48 Completed Prothrombin Time INR Stat Lab 02/20/24 03:48 Completed Salicylate Stat Lab 02/20/24 03:48 Completed UDS [Drug Screen,Urine] Stat Lab 02/20/24 04:40 Completed Medical Decision Narrative: In summary, this 48year old male presents to the emergency department today with concerns of suicidal ideation, suicide attempt with intentional ingestion of tizanidine, trazodone. Patient's prescriptions were last filled in October, however based on remaining pills, he took up to 1500 mg of trazodone and up to 112 mg of tizanidine. Patient also has pinpoint pupils. He refuses to answer whether or not he took anything else tonight. On initial evaluation patient is sleepy but easily arousable, pinpoint pupils, follows commands, GCS 14, refusing to answer questions about his actions or intentions tonight. Physical exam otherwise unremarkable. Patient received additional 1 mg of IV Narcan in the ER due to pinpoint pupils and sleepiness, he had some improvement of his alertness, but continues to refuse to participate. Differential diagnosis includes but is not limited to suicidal ideation, intentional overdose, possible coingestion, patient has a possibility of developing organ damage, arrhythmia, and other associated toxidrome symptoms with his ingestion. Based on these concerns, I ordered basic labs including CBC, CMP, EKG, acetaminophen level, salicylate level, EtOH, urine drug screen. ECG personally interpreted demonstrates normal sinus rhythm, rate 74, QTc 481, increased from previous ECG, no STEMI. Poison control was contacted and they recommend giving 1-2 mill equivalents per kilogram of sodium bicarbonate IV push due to prolonged QTc compared to previous, they recommend that if the patient develops bradycardia to give atropine, they recommend obtaining a magnesium level and keeping magnesium greater than 2.0, potassium greater than 4.0. They also recommend repeat EKG in 4 hours. They recommend 4 to 6 hours of observation for time to metabolize at which point they recommend psychiatric evaluation. They recommend this to be 4 to 6 hours from time of arrival in the ER. Patient received sodium bicarbonate, IV fluids, IV Narcan for treatment. Patient was placed into ED observation at 0444 to be monitored and allowed time to metabolize his ingested substances at the recommendation of poison control. Will remain on the monitor technician and be frequently reassessed. He requires this time of observation in order to be medically cleared and then be evaluated for psych disposition. Labs personally reviewed demonstrate EtOH, acetaminophen, salicylates negative, no leukocytosis, trace anemia with hemoglobin 13.4, PT/INR normal, CMP with mild hypokalemia, since the recommendation from poison control was to have a potassium greater than 4, patient is receiving both oral and IV potassium. Good kidney and liver function, magnesium 1.9, recommendation from poison control was magnesium greater than 2.0 so patient is receiving 0.5 g potassium IM, UDS positive for barbiturates and marijuana. [facility] report number [id number] demonstrates in the last year patient has had hydrocodone and pregabalin prescribed to him multiple times as well as 1 prescription for gabapentin. Patient has no prescription for barbiturates and his Bertin. Unclear where this came from, none of his admitted ingested substances should cause false positive. I discussed this case again with poison control. Reviewed his labs with him including positives on UDS. They agree with my plan to administer potassium and magnesium. They recommend EKG to be performed again 4 hours after the initial was completed. Patient continued to be stable on frequent reassessments. His vitals are unchanged. He is more alert than he was previously. Patient handed off to Dr. Mena at physician shift change for further management and disposition pending repeat EKG, completion of recommended observation time from poison control, and psychiatric disposition <Asim Mena MD - Last Filed: 02/21/24 16:15> Vital Signs: 02/20/24 03:36 02/20/24 04:02 02/20/24 04:30 Temperature 97.8 F Temperature Source Oral Pulse Rate 76 79 Pulse Rate [Left] 76 Respiratory Rate 16 20 18 Blood Pressure 120/63 134/81 Blood Pressure [Right Arm] 106/73 L Blood Pressure Mean 82 93 Blood Pressure Mean [Right Arm] 84 Blood Pressure Source [Right Arm] Automatic Cuff Blood Pressure Position [Right Arm] Sitting 02 Sat by Pulse Oximetry 94 L 99 97 Oxygen Delivery Method Room Air Room Air Room Air 02/20/24 05:00 02/20/24 05:31 02/20/24 06:00 Temperature Temperature Source Pulse Rate 85 90 94 H Pulse Rate [Left] Respiratory Rate 20 20 18 Blood Pressure 127/81 137/88 149/87 H Blood Pressure [Right Arm] Blood Pressure Mean 97 104 107 Blood Pressure Mean [Right Arm] Blood Pressure Source [Right Arm] Blood Pressure Position [Right Arm] 02 Sat by Pulse Oximetry 98 97 93 L Oxygen Delivery Method Room Air Room Air Room Air 02/20/24 06:30 02/20/24 07:00 02/20/24 07:30 Temperature Temperature Source Pulse Rate 97 H 89 Pulse Rate [Left] Respiratory Rate 20 23 Blood Pressure 138/81 135/88 134/81 Blood Pressure [Right Arm] Blood Pressure Mean 100 100 Blood Pressure Mean [Right Arm] Blood Pressure Source [Right Arm] Blood Pressure Position [Right Arm] 02 Sat by Pulse Oximetry 94 L 95 Oxygen Delivery Method Room Air Room Air 02/20/24 08:00 02/20/24 08:31 02/20/24 09:00 Temperature Temperature Source Pulse Rate 89 91 H 90 Pulse Rate [Left] Respiratory Rate 25 H 25 H 15 Blood Pressure 137/82 96/77 L 148/93 H Blood Pressure [Right Arm] Blood Pressure Mean Blood Pressure Mean [Right Arm] Blood Pressure Source [Right Arm] Blood Pressure Position [Right Arm] 02 Sat by Pulse Oximetry 94 L 97 95 Oxygen Delivery Method Room Air Room Air Room Air 02/20/24 09:45 02/20/24 10:00 02/20/24 11:00 Temperature Temperature Source Pulse Rate 83 91 H Pulse Rate [Left] Respiratory Rate 18 17 Blood Pressure 127/105 H 139/76 115/71 Blood Pressure [Right Arm] Blood Pressure Mean 99 Blood Pressure Mean [Right Arm] Blood Pressure Source [Right Arm] Blood Pressure Position [Right Arm] 02 Sat by Pulse Oximetry 97 96 Oxygen Delivery Method Room Air 02/20/24 11:41 Temperature 97.8 F Temperature Source Oral Pulse Rate 91 H Pulse Rate [Left] Respiratory Rate 16 Blood Pressure 128/72 Blood Pressure [Right Arm] Blood Pressure Mean Blood Pressure Mean [Right Arm] Blood Pressure Source [Right Arm] Blood Pressure Position [Right Arm] 02 Sat by Pulse Oximetry Oxygen Delivery Method Room Air Lab Data Lab Results 02/20/24 03:48: WBC 10.0, RBC 3.98 L, Hgb 13.4 L, Hct 39.8 L, MCV 100.0 H, MCH 33.6 H, MCHC 33.6, RDW 15.0, Plt Count 268, MPV 8.0, Neut % (Auto) 60.4, Lymph % (Auto) 29.6, [place] % (Auto) 6.7, Eos % (Auto) 1.4, Baso % (Auto) 1.9, Neut # (Auto) 6.1, Lymph # (Auto) 3.0, [place] # (Auto) 0.7, Eos # (Auto) 0.1, Baso # (Auto) 0.2, PT 10.6, INR 0.98, Sodium 139, Potassium 3.1 L, Chloride 105, Carbon Dioxide 30, Anion Gap 7.1, BUN 10, Creatinine 0.60 L, Estimated Creat Clear 165, Estimated GFR 143, Est GFR ( Amer) 173, Glucose 120 H, Calcium 8.7, Magnesium 1.9, Total Bilirubin 0.3, AST 23, ALT 15, Alkaline Phosphatase 66, Total Protein 6.3, Albumin 3.5, Globulin 2.8, Albumin/Globulin Ratio 1.3, S alicylates < 1.0 L, Acetaminophen < 10 L, Plasma/Serum Alcohol < 10 02/20/24 04:40: Urine Opiates Screen Negative, Urine Methadone Screen Negative, Ur Barbituates Screen Positive H, Ur Phencyclidine Scrn Negative, Ur Amphetamines Screen Negative, U Benzodiazepines Scrn Negative, Urine Cocaine Screen Negative, U Marijuana (THC) Screen Positive H Orders (Tests/Meds): ED MEDICATIONS Discontinued Medications Generic Name Dose Route Start Last Admin Trade Name [place] PRN Reason Stop Dose Admin Lactated Ringer's 1,000 mls @ 999 mls/hr 02/20/24 03:52 02/20/24 04:03 Lactated Ringer's 1000 Ml Bag IV 02/20/24 04:52 999 mls/hr .Q1H1M ONE Administration Potassium Chloride/Water 100 mls @ 50 mls/hr 02/20/24 05:06 02/20/24 08:10 Potassium Chloride 20meq/100ml Ivpb IV 02/20/24 09:05 50 mls/hr Q2H KATHERINE Administration Magnesium Sulfate 0.5 gm in 12.5 mls @ 50 mls/hr 02/20/24 05:30 02/20/24 05:23 Magnesium Sulfate 2gm/50ml Premix IV 02/20/24 05:44 50 mls/hr ONCE ONE Administration Magnesium Sulfate 0.5 gm 02/20/24 05:07 02/20/24 07:06 Magnesium Sulfate 1gm/2ml Vial IM 02/20/24 05:08 Not Given ONCE ONE Naloxone HCl 1 mg 02/20/24 04:00 02/20/24 04:01 Naloxone 2mg/2ml Syringe IV 02/20/24 04:01 1 mg ONCE ONE Administration Ondansetron HCl 4 mg 02/20/24 08:03 02/20/24 08:08 Ondansetron 4mg/2ml Vial IV 02/20/24 08:04 4 mg ONCE ONE Administration Potassium Chloride 40 meq 02/20/24 05:04 02/20/24 05:19 Potassium Chloride 20meq Tab PO 02/20/24 05:05 40 meq ONCE ONE Administration Sodium Bicarbonate 100 meq 02/20/24 04:23 02/20/24 04:40 Sodium Bicarb 8.4% 50ml Syringe (Crash Cart) IV 02/20/24 04:24 100 meq ONCE ONE Administration ORDERS Category Date Time Status Acetaminophen Stat Lab 02/20/24 03:48 Completed CBC w/Auto Diff [Complete Blood Count Auto Diff] Stat Lab 02/20/24 03:48 Completed CMP [Comprehensive Metabolic Panel] Stat Lab 02/20/24 03:48 Completed Ethyl Alcohol Stat Lab 02/20/24 03:48 Completed Magnesium Stat Lab 02/20/24 03:48 Completed Prothrombin Time INR Stat Lab 02/20/24 03:48 Completed Salicylate Stat Lab 02/20/24 03:48 Completed UDS [Drug Screen,Urine] Stat Lab 02/20/24 04:40 Completed Medical Decision Narrative: In summary, this 48year old male presents to the emergency department today with concerns of suicidal ideation, suicide attempt with intentional ingestion of tizanidine, trazodone. Patient's prescriptions were last filled in October, however based on remaining pills, he took up to 1500 mg of trazodone and up to 112 mg of tizanidine. Patient also has pinpoint pupils. He refuses to answer whether or not he took anything else tonight. On initial evaluation patient is sleepy but easily arousable, pinpoint pupils, follows commands, GCS 14, refusing to answer questions about his actions or intentions tonight. Physical exam otherwise unremarkable. Patient received additional 1 mg of IV Narcan in the ER due to pinpoint pupils and sleepiness, he had some improvement of his alertness, but continues to refuse to participate. Differential diagnosis includes but is not limited to suicidal ideation, intentional overdose, possible coingestion, patient has a possibility of developing organ damage, arrhythmia, and other associated toxidrome symptoms with his ingestion. Based on these concerns, I ordered basic labs including CBC, CMP, EKG, acetaminophen level, salicylate level, EtOH, urine drug screen. ECG personally interpreted demonstrates normal sinus rhythm, rate 74, QTc 481, increased from previous ECG, no STEMI. Poison control was contacted and they recommend giving 1-2 mill equivalents per kilogram of sodium bicarbonate IV push due to prolonged QTc compared to previous, they recommend that if the patient develops bradycardia to give atropine, they recommend obtaining a magnesium level and keeping magnesium greater than 2.0, potassium greater than 4.0. They also recommend repeat EKG in 4 hours. They recommend 4 to 6 hours of observation for time to metabolize at which point they recommend psychiatric evaluation. They recommend this to be 4 to 6 hours from time of arrival in the ER. Patient received sodium bicarbonate, IV fluids, IV Narcan for treatment. Patient was placed into ED observation at 0444 to be monitored and allowed time to metabolize his ingested substances at the recommendation of poison control. Will remain on the monitor technician and be frequently reassessed. He requires this time of observation in order to be medically cleared and then be evaluated for psych disposition. Labs personally reviewed demonstrate EtOH, acetaminophen, salicylates negative, no leukocytosis, trace anemia with hemoglobin 13.4, PT/INR normal, CMP with mild hypokalemia, since the recommendation from poison control was to have a potassium greater than 4, patient is receiving both oral and IV potassium. Good kidney and liver function, magnesium 1.9, recommendation from poison control was magnesium greater than 2.0 so patient is receiving 0.5 g potassium IM, UDS positive for barbiturates and marijuana. [facility] report number [id number] demonstrates in the last year patient has had hydrocodone and pregabalin prescribed to him multiple times as well as 1 prescription for gabapentin. Patient has no prescription for barbiturates and his Bertin. Unclear where this came from, none of his admitted ingested substances should cause false positive. I discussed this case again with poison control. Reviewed his labs with him including positives on UDS. They agree with my plan to administer potassium and magnesium. They recommend EKG to be performed again 4 hours after the initial was completed. Patient continued to be stable on frequent reassessments. His vitals are unchanged. He is more alert than he was previously. Patient handed off to Dr. Mena at physician shift change for further management and disposition pending repeat EKG, completion of recommended observation time from poison control, and psychiatric disposition Asim Mena MD: I assumed care of this patient from the previous emergency medicine physician. Upon serial evaluations, patient is alert and oriented, denying any pain, hemodynamically stable. Per the direction of poison control, repeat EKGs were obtained revealing stable QTc, QRS. I personally reviewed multiple prior EKGs and intervals similar. At this time he is deemed medically stable for transfer to psychiatric facility and was accepted to outside psychiatric facility Critical Care <Sima Rothman MD - Last Filed: 02/20/24 06:55> Critical Care Time Critical Care Time: Yes Attestation: On 02/20/24, the high probability of a clinically significant, sudden or life threatening deterioration of the following system(s) neurologic, cardiac, respiratory required my full and direct attention, intervention and personal management. The time I documented below is in addition to time spent performing reported procedures but includes the following listed in this critical care notation. Total Time Total Critical Care Time: 35
--- NOTE | 2024-02-20 04:06 | PC.NURSE ---
on hold with poison control at this time
--- NOTE | 2024-02-20 04:12 | PC.NURSE ---
Pt placed in gown, belongings placed in bag, sitter at bedside
[2024-02-20 04:21] LABS: Alanine Aminotransferase 15 U/L (12-78); Albumin Level 3.5 g/dl (3.5-5.0); Albumin/Globulin Ratio 1.3 (1.1-1.8); Alkaline Phosphatase 66 U/L (38-126); Anion Gap 7.1 mEq/L (5-15); Aspartate Amino Transferase 23 U/L (17-59); Bilirubin,Total 0.3 mg/dl (0.2-1.3); Blood Urea Nitrogen 10 mg/dl (9-20); Calcium 8.7 mg/dl (8.4-10.2); Carbon Dioxide 30 mmol/L (22.0-30.0); Chloride 105 mmol/L (98-107); Creatinine Clearance Estimated 165 mL/min (50-200); Estimated Glomerular Filt Rate 143 ml/min (>60); GFR (African American) 173 ML/MIN (>60); Globulin 2.8 g/dL (1.3-3.2); Glucose 120 mg/dl (74-100); Potassium 3.1 mmoL/L (3.5-5.1); Sodium 139 mmol/L (136-145); Total Protein,Serum 6.3 g/dl (6.3-8.2)
[2024-02-20 04:25] LABS: Basophils # 0.2 K/mm3 (0-0.2); Basophils % 1.9 % (0.1-2.0); Eosinophils # 0.1 K/mm3 (0.0-0.4); Eosinophils % 1.4 % (0.1-12.0); Hematocrit 39.8 % (42.0-52.0); Hemoglobin 13.4 g/dL (14.1-18.0); Lymphocytes % 29.6 % (10-50); Mean Corpuscular HGB Conc 33.6 g/dL (31.8-35.4); Mean Corpuscular Hemoglobin 33.6 pg (27.0-31.2); Monocytes # 0.7 K/mm3 (0.1-1.0); Monocytes % 6.7 % (1.7-9.3); Neutrophils # 6.1 K/mm3 (1.8-7.8); Neutrophils % 60.4 % (37.0-80.0); Platelet Count 268 K/mm3 (142-424); Red Blood Count 3.98 M/mm3 (4.60-6.20)
--- NOTE | 2024-02-20 04:25 | PC.NURSE ---
spoke with poison control. They recommend: checking mag level, giving 1-2 meq/kg of bicarb IVP d/t prolonged qtc compared to previous ekgs, they also recommend keeping mag level >2, and k >4, repeat ekg 4 hours from 1st ekg, give benzos for potential seizures, give atropine for potential bradycardia, observation time 4-6 hours or until asymptomatic, and psych consult
[2024-02-20 04:26] LABS: Acetaminophen < 10 ug/ml (10-30); Salicylate < 1.0 mg/dL (2.0-20.0)
[2024-02-20 04:27] LABS: Ethyl Alcohol < 10 mg/dl (0-10)
[2024-02-20 04:31] LABS: INR 0.98 (0.9-1.1); Prothrombin Time 10.6 seconds (10.1-12.5)
[2024-02-20 04:34] LABS: Magnesium 1.9 mg/dl (1.6-2.3)
[2024-02-20] MEDS: SODIUM BICARB 8.4% 50ML SYRINGE (CRASH CART) 100 MEQ IV (04:40)
[2024-02-20 04:57] LABS: Amphetamine/Metha Screen,Urine Negative ng/ml (<1000); Benzodiazepines Screen,Urine Negative ng/ml (<200)
[2024-02-20 04:58] LABS: Barbiturates Screen,Urine Positive ng/ml (<200)
[2024-02-20 04:59] LABS: Cannabinoid Screen,Urine Positive ng/ml (<50); Cocaine Screen,Urine Negative ng/ml (<300)
[2024-02-20 05:00] LABS: Methadone Screen,Urine Negative ng/ml (<300)
[2024-02-20 05:01] LABS: Opiate Screen,Urine Negative ng/ml (<300); Phencyclidine Screen,Urine Negative ng/ml (<25)
[2024-02-20] MEDS: KCl 20mEq/100ml 100 ML 50 MEQ IV ×2 (05:19→08:10)
[2024-02-20] MEDS: POTASSIUM CHLORIDE 20MEQ TAB 40 MEQ PO (05:19)
[2024-02-20] MEDS: MAGNESIUM SULFATE IV (05:23)
[2024-02-20] MEDS: [UNRECOGNIZED DRUG - OTHER] IV (05:23)
--- NOTE | 2024-02-20 07:11 | PC.NURSE ---
called for update.
--- NOTE | 2024-02-20 07:59 | ECG_ITS ---
APPROVED REPORT Exam: Resting ECG HR:90 bpm ECG Measurements Heart Rate 90 AXES DE 166 P 70 QRSd 109 QRS 265 QT 377 T 42 QTc 425 Conclusion SINUS RHYTHM POSSIBLE RIGHT VENTRICULAR HYPERTROPHY Electronically signed by : ANGELA CAMPO, 02/21/2024 19:38:47
[2024-02-20] MEDS: ONDANSETRON 4MG/2ML VIAL 4 MG IV (08:08)
--- NOTE | 2024-02-20 08:21 | PC.NURSE ---
DR GARCIA AT BEDSIDE
--- NOTE | 2024-02-20 08:33 | PC.NURSE ---
paperwork faxed to [facility]
--- NOTE | 2024-02-20 08:33 | PC.NURSE ---
PT stated that nausea has settled and he would like to try to eat a little bit. Dietary has been notified.
--- NOTE | 2024-02-20 08:42 | PC.NURSE ---
550 emptied out of urinal
--- NOTE | 2024-02-20 09:51 | PC.NURSE ---
pt speaking to recreation program coordinator at [facility]
--- NOTE | 2024-02-20 10:11 | ECG_ITS ---
APPROVED REPORT Exam: Resting ECG HR:81 bpm ECG Measurements Heart Rate 81 AXES ND 172 P 56 QRSd 113 QRS -75 QT 402 T 18 QTc 440 Conclusion SINUS RHYTHM Incomplete right bundle branch block Electronically signed by : ANGELA CAMPO, 02/21/2024 19:40:17
--- NOTE | 2024-02-20 10:29 | PC.NURSE ---
3rd ekg faxed to [facility]
--- NOTE | 2024-02-20 10:42 | PC.NURSE ---
PT WAS GIVEN A COFFEE STILL 1:1 AT BS
--- NOTE | 2024-02-20 11:26 | PC.NURSE ---
report called to [facility]
--- NOTE | 2024-02-20 11:29 | PC.NURSE ---
pt on the phone with family member.
== END 2024-02-20 11:46 | disposition short-term general hospital (02) ==
PROVIDERS: Emergency Medicine; Emergency Provider Emergency Medicine
DX: T50.992A Poisoning by other drugs, medicaments and biological substances, intentional self-harm, initial encounter (principal); E87.6 Hypokalemia; R94.31 Abnormal electrocardiogram [ECG] [EKG]; F17.210 Nicotine dependence, cigarettes, uncomplicated
CPT/HCPCS: 80053; 80307; 80329; 83735; 85025; 85610; 93005; 96365; 96366; 96372; 96375; 99291; J2310; J2405; J3475

== ENCOUNTER 2024-03-28 15:04 | Emergency (ER) | payer MEDICAID, SELFPAY ==
[2024-03-28 15:05] VITALS: BP 113/69; PULSE 74; RESP 18; TEMP 36.9; O2SAT 95; BMI 23.6
--- NOTE | 2024-03-28 15:08 | ECG_ITS ---
APPROVED REPORT Exam: Resting ECG HR:71 bpm ECG Measurements Heart Rate 71 AXES NV 159 P 43 QRSd 116 QRS -79 QT 399 T 82 QTc 422 Conclusion SINUS RHYTHM LEFT ANTERIOR FASCICULAR BLOCK [QRS AXIS <= -45, QR IN I, RS IN II] ABNORMAL ECG UNCONFIRMED REPORT Electronically signed by : Ranjan Aleman, 03/28/2024 23:15:51
[2024-03-28 15:11] VITALS: PULSE 74; O2SAT 96
[2024-03-28 15:14] VITALS: BMI 23.6
--- NOTE | 2024-03-28 15:15 | XR_ITS ---
FINAL REPORT CLINICAL HISTORY: edema FINDINGS: Mild increased markings in the right infrahilar region suspicious for pneumonia. The left lung is clear. There is no evidence of effusion or pneumothorax. Mediastinum is unremarkable. Heart size is normal. IMPRESSION: Right basilar pneumonia. Reviewed, Interpreted and Dictated by Jose D Lawrence MD Transcribed by Shruti Rai Authenticated and [facility] [place]
[2024-03-28 15:25] LABS: Basophils # 0.1 K/mm3 (0-0.2); Basophils % 1.1 % (0.1-2.0); Eosinophils # 0.2 K/mm3 (0.0-0.4); Eosinophils % 1.8 % (0.1-12.0); Hematocrit 45.5 % (42.0-52.0); Hemoglobin 14.5 g/dL (14.1-18.0); Lymphocytes # 2.6 K/mm3 (0.7-4.5); Lymphocytes % 20.4 % (10-50); Mean Corpuscular HGB Conc 31.9 g/dL (31.8-35.4); Mean Corpuscular Hemoglobin 31.8 pg (27.0-31.2); Mean Corpuscular Volume 99.5 fl (80-94); Monocytes # 0.6 K/mm3 (0.1-1.0); Monocytes % 4.9 % (1.7-9.3); Neutrophils # 9.2 K/mm3 (1.8-7.8); Neutrophils % 71.9 % (37.0-80.0); Platelet Count 440 K/mm3 (142-424); Red Blood Count 4.57 M/mm3 (4.60-6.20); Red Cell Distribution Width 15.3 % (11.5-17.5); White Blood Count 12.8 K/mm3 (4.8-10.8)
[2024-03-28 15:27] LABS: Chloride 101 mmol/L (98-107); Sodium 136 mmol/L (136-145)
[2024-03-28 15:29] LABS: Blood Urea Nitrogen 11 mg/dl (9-20); Creatinine Clearance Estimated 100 mL/min (50-200); Estimated Glomerular Filt Rate 89 ml/min (>60); GFR (African American) 108 ML/MIN (>60)
[2024-03-28 15:30] VITALS: BP 112/68; BP 112/71; PULSE 65; O2SAT 96
[2024-03-28 15:30] LABS: Alanine Aminotransferase 17 U/L (12-78); Albumin Level 4.1 g/dl (3.5-5.0); Albumin/Globulin Ratio 1.1 (1.1-1.8); Alkaline Phosphatase 87 U/L (38-126); Aspartate Amino Transferase 23 U/L (17-59); Bilirubin,Total 0.3 mg/dl (0.2-1.3); Calcium 9.2 mg/dl (8.4-10.2); Carbon Dioxide 29 mmol/L (22.0-30.0); Globulin 3.8 g/dL (1.3-3.2); Glucose 87 mg/dl (74-100); Total Protein,Serum 7.9 g/dl (6.3-8.2)
[2024-03-28 15:40] LABS: NT Pro Brain Natriuretic Pep. < 20.0 pg/mL (0-125)
--- NOTE | 2024-03-28 15:45 | CA_ITS ---
FINAL REPORT CLINICAL HISTORY: swelling in bilateral lower extremities since 2019 but has gotten worse over last few weeks, Rheumatoid arthritis. COMPARISON: None FINDINGS: Multiple transverse and longitudinal scans were performed of the femoral popliteal deep venous system, with augmentation and compression maneuvers. Normal phasic flow was noted in the visualized deep venous system. No intraluminal increased echogenicity is noted to suggest thrombus. There is normal compression and augmentation of the venous structures. No abnormal venous collaterals are seen. There are moderate-sized fluid collection in the bilateral popliteal fossa with debris, likely hemorrhagic or complex Donovan's cysts. IMPRESSION: No evidence of deep venous thrombosis of the bilateral lower extremities. Probable hemorrhagic or complex Donovan's cysts in the bilateral popliteal fossa. Reviewed, Interpreted and Dictated by Jose D Lawrence MD Transcribed by Kathleen Ayoub Authenticated and . [facility]
--- NOTE | 2024-03-28 15:46 | HMH.EDGENADL ---
Discharge Plan Disposition Patient Disposition: Home, Self-Care Prescriptions Prescriptions: No Action methotrexate sodium 2.5 MG tablet 2.5 mg PO DAILY folic acid 1 MG tablet 1 mg PO DAILY polyethylene glycol 3350 17 GM powder in packet 17 gm PO DAILY loratadine 10 MG tablet 10 mg PO DAILY metoclopramide HCl 10 MG tablet 10 mg PO QID pantoprazole 40 MG tablet,delayed release (DR/EC) 40 mg PO DAILY prednisone 5 MG tablet 5 mg PO DAILY ondansetron HCl 4 MG tablet 4 mg PO TID Qty: 21 0RF Activity Restrictions/Add. Instructions Additional Instructions/Restrictions: You were treated with a long-acting antibiotic for your right lower extremity infection. Please return to the emergency department with any significant worsening over the next 48 to 72 hours. No emergent medical condition to explain your chronic edema. Please follow-up with primary care doctor regarding that. Clinical Impressions Clinical Impression: Bilateral leg edema, Cellulitis of leg, right Discharge ED Provider: Ramu Aleman General Adult HPI General Chief complaint: PAIN Stated complaint: CHF swelling hands and feet Time Seen by Provider: 03/28/24 15:42 Mode of Arrival: EMS Source of Information: Patient Limitations: No Limitations Description of Symptoms (Recalled from ER Triage Doc. by RN): PT BROUGHT IN BY EMS FOR SWELLING NOTED TO BLE, UPPER ARMS, AND ABDOMEN, HE REPORTS HE HAS BEEN DEALING WITH THIS PROBLEM OFF AND ON SINCE 2019, STATES THE SWELLING HAS BEEN WORSE IN THE LAST FEW WEEKS AND HE VIDEO CHATTED HIS PCP TODAY TO DISCUSS ISSUES WITH HIM, STATES GENRALIZED PAIN RATING IT 10/10 AND A CONSTANT BURNING SENSATION, DENIES CHEST PAIN AND SHORTNESS OF BREATH History of Present Illness HPI narrative: Patient is a 49-year-old male presenting today with bilateral lower extremity edema right lower extremity pain and erythema which is what prompted him to come to the emergency department today. He states that his swelling has been ongoing since 2019 but has worsened over the last few weeks. Pain and redness has increased over the last several days. No fevers or chills no shortness of breath or chest pain. No history of heart failure liver disease kidney failure etc. Related Data Home Medications Medication Instructions Recorded Confirmed folic acid 1 mg tablet 1 mg PO DAILY Diet supplement 10/22/19 04/30/21 methotrexate sodium 2.5 mg tablet 2.5 mg PO DAILY Rheumatoid 10/22/19 04/30/21 arthritis loratadine 10 mg tablet 10 mg PO DAILY ALLERGIES 04/30/21 04/30/21 metoclopramide HCl 10 mg tablet 10 mg PO QID STOMACH 04/30/21 04/30/21 pantoprazole 40 mg tablet,delayed 40 mg PO DAILY GERD 04/30/21 04/30/21 release polyethylene glycol 3350 17 gram 17 gm PO DAILY CONSTIPATION 04/30/21 04/30/21 oral powder packet prednisone 5 mg tablet 5 mg PO DAILY INFLAMMATION 04/30/21 04/30/21 Previous Rx's Medication Instructions Recorded ondansetron HCl 4 mg tablet 4 mg PO TID nausea #21 tabs 05/01/21 Allergies Allergy/AdvReac Type Severity Reaction Status Date / Time No Known Allergies Allergy Verified 07/10/18 01:17 [facility] Disclaimer: The information contained in this section may have been updated after the patient was seen, as this information can be updated by other users. Social History Smoking Status: Current every day smoker tobacco type: cigarettes packs per day: 1 alcohol intake: never current occupational status: employed Travel in the last 8 weeks: None household members: significant other housing: house ROS Obtained: Yes All systems reviewed & no additional complaints except as documented Physical Exam General General appearance: alert and in no apparent distress Respiratory Respiratory exam: Present normal lung sounds bilaterally; Absent respiratory distress Cardiovascular Cardiovascular exam: Present regular rate Extremities Exam Extremities exam: Present other (Bilateral lower extremity pitting edema right greater than left there is significant right circumferential erythema and tenderness on the dorsal aspect of the foot extending up to the proximal tib-fib area) Neurological Exam Neurological exam: Present alert and oriented X3 Medical Decision Making Bertin Inquiry Pt receiving controlled substance: No Vital Signs: 03/28/24 15:05 03/28/24 15:11 03/28/24 15:30 Temperature 98.5 F Temperature Source Oral Pulse Rate 74 65 Pulse Rate [Left Radial] 74 Respiratory Rate 18 Blood Pressure 112/68 Blood Pressure [Right Arm] 113/69 Blood Pressure Mean Blood Pressure Mean [Right Arm] 83 Blood Pressure Source [Right Arm] Automatic Cuff Blood Pressure Position [Right Arm] Sitting 02 Sat by Pulse Oximetry 95 96 96 Oxygen Delivery Method Room Air 03/28/24 15:30 03/28/24 16:00 03/28/24 16:30 Temperature Temperature Source Pulse Rate 62 66 Pulse Rate [Left Radial] Respiratory Rate 18 20 Blood Pressure 112/71 111/67 115/75 Blood Pressure [Right Arm] Blood Pressure Mean 82 73 84 Blood Pressure Mean [Right Arm] Blood Pressure Source [Right Arm] Blood Pressure Position [Right Arm] 02 Sat by Pulse Oximetry 97 99 Oxygen Delivery Method Lab Data Lab results reviewed: Yes I reviewed the patient's lab results. Lab Results 03/28/24 15:15: WBC 12.8 H, RBC 4.57 L, Hgb 14.5, Hct 45.5, MCV 99.5 H, MCH 31.8 H, MCHC 31.9, RDW 15.3, Plt Count 440 H, MPV 7.0 L, Neut % (Auto) 71.9, Lymph % (Auto) 20.4, [place] % (Auto) 4.9, Eos % (Auto) 1.8, Baso % (Auto) 1.1, Neut # (Auto) 9.2 H, Lymph # (Auto) 2.6, [place] # (Auto) 0.6, Eos # (Auto) 0.2, Baso # (Auto) 0.1, Sodium 136, Potassium 4.0, Chloride 101, Carbon Dioxide 29, Anion Gap 10.0, BUN 11, Creatinine 0.90, Estimated Creat Clear 100, Estimated GFR 89, Est GFR ( Amer) 108, Glucose 87, Calcium 9.2, Total Bilirubin 0.3, AST 23, ALT 17, Alkaline Phosphatase 87, Troponin I < 0.01, NT-Pro-B Natriuret Pep < 20.0, Total Protein 7.9 D, Albumin 4.1, Globulin 3.8 H, Albumin/Globulin Ratio 1.1 03/28/24 15:31: PT 10.4, INR 0.96 03/28/24 16:47: Urine Color Yellow, Urine Appearance Clear, Urine pH 6.5, Ur Specific [place] 1.010, Urine Protein Negative, Urine Glucose (UA) Negative, Urine Ketones Negative, Urine Blood Negative, Urine Nitrate Negative, Urine Bilirubin Negative, Urine Urobilinogen 0.2, Ur Leukocyte Esterase Negative 03/28/24 15:15 03/28/24 15:15 Orders (Tests/Meds): ED MEDICATIONS Generic Name Dose Route Start Last Admin Trade Name Freq PRN Reason Stop Dose Admin Sodium Chloride 10 ml 03/28/24 15:15 Sodium Chloride 0.9% 10ml Flush Syringe IV 04/27/24 15:14 NEEDED PRN Maintain IV Site Discontinued Medications Generic Name Dose Route Start Last Admin Trade Name [place] PRN Reason Stop Dose Admin Dalbavancin 1,500 mg/ Dextrose 250 mls @ 500 mls/hr 03/28/24 15:46 03/28/24 15:57 IV 03/28/24 15:47 500 mls/hr ONCE ONE Administration ORDERS Category Date Time Status XR chest portable Stat Exams 03/28/24 15:15 Completed BNP [NT Pro Brain Natriuretic Pep.] Stat Lab 03/28/24 15:15 Completed Complete Blood Count Auto Diff Stat Lab 03/28/24 15:15 Completed Comprehensive Metabolic Panel Stat Lab 03/28/24 15:15 Completed PT INR [Prothrombin Time INR] Stat Lab 03/28/24 15:31 Completed Troponin I Q3H Lab 03/28/24 18:30 Ordered Troponin I Q3H Lab 03/28/24 21:30 Ordered Troponin I Stat Lab 03/28/24 15:15 Completed UA [Urinalysis and Microscopic] Stat Lab 03/28/24 16:47 Results CA venous doppler LE BI Routine Y 03/28/24 15:45 Completed Medical Decision Narrative: Stable 49-year-old male present today with bilateral lower extremity edema which appears chronic but he seems to have a superimposed cellulitis in the right lower extremity which prompted his ED visit today. Differential includes heart failure liver failure protein-losing enteropathy nephrotic syndrome DVT etc. Given the extensive cellulitis will treat him with dalbavancin anticipate discharge if his workup is negative. Ultrasound pending of his right lower extremity for DVT rule out as well. Labs unremarkable chest x-ray read by radiologist as right lower lobe pneumonia I was primarily looking for significant pulmonary edema which I do not see he has no signs or symptoms of pneumonia and will not treat that. Labs otherwise nonactionable. Dalbavancin should be curative. He will follow-up with primary care doctor regarding his chronic edema. Return precautions emphasized as well. Critical Care Critical Care Time Critical Care Time: No
[2024-03-28 15:49] LABS: Troponin I < 0.01 ng/ml (0.00-0.034)
--- NOTE | 2024-03-28 15:55 | PC.NURSE ---
PORTABLE XRAY AT BEDSIDE
[2024-03-28] MEDS: DALBAVANCIN HCL 1,500 MG in DEXTROSE 5 % IN WATER 250 ML 500 MG IV (15:57)
[2024-03-28 16:00] VITALS: BP 111/67; PULSE 62; RESP 18; O2SAT 97
[2024-03-28 16:01] LABS: INR 0.96 (0.9-1.1); Prothrombin Time 10.4 seconds (10.1-12.5)
[2024-03-28 16:30] VITALS: BP 115/75; PULSE 66; RESP 20; O2SAT 99
[2024-03-28 17:08] LABS: Microscopic, Urine URINE MICROSCOPIC (MICROSCOPIC)
[2024-03-28 17:10] LABS: Appearance,Urine CLEAR (Clear); Bilirubin,Urine Negative (Negative); Blood, Urine Negative (Negative); Color,Urine YELLOW (Yellow); Glucose,Urine (UA) Negative (Negative); Ketones,Urine Negative (Negative); Leukocyte Esterase,Urine Negative (Negative); Nitrate,Urine Negative (Negative); PH,Urine 6.5 (5.0-8.5); Protein,Urine Negative (Negative); Urobilinogen,Urine 0.2 EU/dl (0.2)
[2024-03-28 17:22] LABS: Bacteria,Urine Trace /lpf; Squamous Epithelial Cell,Urine Occasional #/hpf (0-5)
[2024-03-28 17:25] VITALS: BP 112/72; PULSE 68; RESP 18; TEMP 36.7; O2SAT 99
== END 2024-03-28 17:25 | disposition home or self-care (01) ==
PROVIDERS: Ophthalmology; Emergency Provider Student in an Organized Health Care Education/Training Program
DX: L03.115 Cellulitis of right lower limb (principal); R60.0 Localized edema; F17.210 Nicotine dependence, cigarettes, uncomplicated; I44.4 Left anterior fascicular block
CPT/HCPCS: 71045; 80053; 81001; 83880; 84484; 85025; 85610; 93005; 93970; 96374; 99285; J0875

== ENCOUNTER 2024-05-25 00:33 | Emergency (ER) | payer MEDICAID, SELFPAY ==
--- NOTE | 2024-05-25 00:30 | ECG_ITS ---
APPROVED REPORT Exam: Resting ECG HR:79 bpm ECG Measurements Heart Rate 79 AXES AL 173 P 81 QRSd 114 QRS 269 QT 366 T 80 QTc 400 Conclusion SINUS RHYTHM WITH MARKED SINUS ARRHYTHMIA RIGHT AXIS DEVIATION [QRS AXIS > 100] MODERATE INTRAVENTRICULAR CONDUCTION DELAY [110+ ms QRS DURATION] ABNORMAL ECG UNCONFIRMED REPORT Electronically signed by : JORGE COLON, 05/25/2024 03:38:21
[2024-05-25 00:38] VITALS: BP 130/87; PULSE 89; RESP 18; TEMP 37.2; O2SAT 96; BMI 23.6
[2024-05-25 00:44] VITALS: PULSE 79
--- NOTE | 2024-05-25 00:52 | XR_ITS ---
PROCEDURE INFORMATION: Exam: XR Chest Exam date and time: 05/25/2024 1:06 AM Age: 49 years old Clinical indication: Pain; Chest pressure; Additional info: Cp TECHNIQUE: Imaging protocol: Radiologic exam of the chest. Views: 1 view. COMPARISON: CR XR CHEST PORTABLE 03/28/2024 3:50 PM FINDINGS: Lungs: No evidence of acute pulmonary disease or infiltrates Pleural spaces: No large effusion or pneumothorax. Heart/Mediastinum: Stable cardiac and mediastinal contours. Bones/joints: No evidence of acute osseous abnormalities within the visualized portions of the thoracic spine and ribs. Osseous structures appear appropriate for patient age. IMPRESSION: No dense parenchymal consolidation, pleural effusion, or pneumothorax.
--- NOTE | 2024-05-25 00:54 | ED_ITS ---
Discharge Plan Disposition Patient Disposition: Home, Self-Care Condition: Good Prescriptions Prescriptions: No Action methotrexate sodium 2.5 MG tablet 2.5 mg PO DAILY folic acid 1 MG tablet 1 mg PO DAILY polyethylene glycol 3350 17 GM powder in packet 17 gm PO DAILY loratadine 10 MG tablet 10 mg PO DAILY metoclopramide HCl 10 MG tablet 10 mg PO QID pantoprazole 40 MG tablet,delayed release (DR/EC) 40 mg PO DAILY prednisone 5 MG tablet 5 mg PO DAILY ondansetron HCl 4 MG tablet 4 mg PO TID Qty: 21 0RF Referrals Follow up/Referrals: Toni Zapien [Primary Care Provider] - See instructions Activity Restrictions/Add. Instructions Additional Instructions/Restrictions: You were evaluated in the ER. You are appropriate for discharge at this time. Continue home medications as previously prescribed. Continue taking your Carafate. Make an appointment with your primary care physician for reevaluation of your symptoms as well as to discuss emphysema and nodules in the lungs. Return to the ER with new, worsening, or otherwise concerning symptoms. Clinical Impressions Clinical Impression: Chest pain, Emphysema of lung, Pulmonary nodule Print Language Print Language: Albanian Discharge ED Provider: Sima Rothman General Chief Complaint: Chest Pain Stated Complaint: chest pain,soa Time Seen by Provider: 05/25/24 00:42 Mode of Arrival: EMS Source of Information: Patient Limitations: No Limitations Description of Symptoms (Recalled from ER Triage Doc. by RN): Pt reported to ED via EMS with cc of chest pain. Pt states chest pain started approx 2 hours ago. Pt states the pain is in the center of his chest and denies the pain radiating. Pt also states it hurts to breath. History of Present Illness HPI narrative: 49-year-old male with history of arthritis and reportedly a recently diagnosed ulcer presents to the ER with complaints of chest pain. He states his pain started approximately 2 hours prior to arrival. It is in the center of his chest and he reports with deep breathing it worsens and radiates to the bilateral shoulders. Patient denies history of blood clot, he states he does not take any medications for pain daily because Tylenol and ibuprofen do not work. Patient reports he is supposed to be on Carafate but has not taken it today. He denies any nausea or vomiting, no new pain in the legs or swelling. No recent falls or injury. Patient states he has previously been evaluated for chest pain with no identification of the cause, he has no history of CAD. Related Data Home Medications ?Medication ?Instructions ?Recorded ?Confirmed folic acid 1 mg tablet 1 mg PO DAILY Diet supplement 10/22/19 05/25/24 methotrexate sodium 2.5 mg tablet 2.5 mg PO DAILY Rheumatoid 10/22/19 05/25/24 arthritis loratadine 10 mg tablet 10 mg PO DAILY ALLERGIES 04/30/21 05/25/24 metoclopramide HCl 10 mg tablet 10 mg PO QID STOMACH 04/30/21 05/25/24 pantoprazole 40 mg tablet,delayed 40 mg PO DAILY GERD 04/30/21 05/25/24 release polyethylene glycol 3350 17 gram 17 gm PO DAILY CONSTIPATION 04/30/21 05/25/24 oral powder packet prednisone 5 mg tablet 5 mg PO DAILY INFLAMMATION 04/30/21 05/25/24 Previous Rx's ?Medication ?Instructions ?Recorded ondansetron HCl 4 mg tablet 4 mg PO TID nausea #21 tabs 05/01/21 Allergies Allergy/AdvReac Type Severity Reaction Status Date / Time No Known Allergies Allergy Verified 07/10/18 01:17 [facility] Disclaimer: The information contained in this section may have been updated after the patient was seen, as this information can be updated by other users. Social History Smoking Status: Current every day smoker tobacco type: cigarettes packs per day: 1 alcohol intake: never current occupational status: employed Travel in the last 8 weeks: None household members: significant other housing: house ROS Obtained: Yes All systems reviewed & no additional complaints except as documented Constitutional Constitutional: Denies chills, Denies fever(s), Denies headache(s) and Denies weakness Eyes Eyes: Denies change in vision ENT Ears, Nose, Mouth, and Throat: Denies dizziness, Denies headache(s), Denies nasal congestion and Denies sore throat Cardiovascular Cardiovascular: Reports chest pain (Worse with deep breathing), Reports chest pain at rest, Denies dyspnea, Denies edema and Denies leg edema Respiratory Respiratory: Denies cough and Denies dyspnea Gastrointestinal Gastrointestingal: Denies constipation, diarrhea, nausea or vomiting Genitourinary Male Genitourinary: Denies difficulty urinating Musculoskeletal Musculoskeletal: Denies arthralgias, Denies myalgias, Denies numbness and Denies tingling Integumentary/Breasts Skin/Breast: Denies change in pigmentation Neurologic Neurologic: Denies dizziness, Denies headache(s), Denies numbness, Denies tingling and Denies weakness Physical Exam General General appearance: alert and in no apparent distress Head Head exam: atraumatic and normocephalic Eye Eye exam: Present PERRL and EOMI ENT ENT exam: Present mucous membranes moist Neck Neck exam: Present normal inspection and full ROM Chest Chest inspection: Present symmetric chest wall rise Respiratory Respiratory exam: Present normal lung sounds bilaterally; Absent respiratory distress, wheezes or stridor Cardiovascular Cardiovascular exam: Present regular rate and normal rhythm Abdominal Exam Abdominal exam: Present soft; Absent distention or tenderness Extremities Exam Extremities exam: Present full ROM; Absent edema or calf tenderness Neurological Exam Neurological exam: Present alert and oriented X3; Absent motor sensory deficit Psychiatric Psychiatric exam: Present normal affect and normal mood Skin Skin exam: Present warm and dry HEART Score HEART Score HEART Score assessment performed?: Yes History (anamnesis): Slightly suspicious ECG: Non-specific disturbance Age: 45-65 years Risk factors: 1-2 risk factors Troponin: </= normal limit HEART Score: 3 Critical Care Critical Care Time Critical Care Time: No Medical Decision Making Medical Records Medical records reviewed: Yes I reviewed the patient's medical records. MR Comment: Patient's most recent visit to the ER was for cellulitis. Bertin Inquiry Pt receiving controlled substance: No Vital Signs Vital Signs: 05/25/24 00:38 05/25/24 00:44 Temperature 98.9 F Temperature Source Oral Pulse Rate 79 Pulse Rate [Right Radial] 89 Respiratory Rate 18 Blood Pressure [Right Arm] 130/87 Blood Pressure Mean [Right Arm] 101 Blood Pressure Source [Right Arm] Automatic Cuff Blood Pressure Position [Right Arm] Supine 02 Sat by Pulse Oximetry 96 Oxygen Delivery Method Room Air Lab Data Labs: Lab Results 05/25/24 00:00: WBC 12.4 H, RBC 5.08, Hgb 16.3, Hct 49.2, MCV 96.8 H, MCH 32.1 H , MCHC 33.2, RDW 15.3, Plt Count 321, MPV 8.1, Neut % (Auto) 70.7, Lymph % (Auto) 21.6, [place] % (Auto) 5.2, Eos % (Auto) 1.8, Baso % (Auto) 0.8, Neut # (Auto) 8.8 H, Lymph # (Auto) 2.7, [place] # (Auto) 0.6, Eos # (Auto) 0.2, Baso # (Auto) 0.1, PT 10.5, INR 0.93, D-Dimer 1.76 H, Sodium 140, Potassium 4.0, Chloride 106, Carbon Dioxide 29, Anion Gap 9.0, BUN 11, Creatinine 0.90, Estimated Creat Clear 100, Estimated GFR 89, Est GFR ( Amer) 108, Glucose 100, Calcium 9.3, Total Bilirubin 0.3, AST 19, ALT 12, Alkaline Phosphatase 80, Troponin I < 0.01, Total Protein 7.3, Albumin 4.0, Globulin 3.3 H, Albumin/Globulin Ratio 1.2 05/25/24 03:03: Troponin I < 0.01 05/25/24 00:00 05/25/24 00:00 Response Orders (Tests/Meds): ED MEDICATIONS Generic Name Dose Route Start Last Admin Trade Name Freq PRN Reason Stop Dose Admin Sodium Chloride 10 ml 05/25/24 02:19 05/25/24 02:20 Sodium Chloride 0.9% 10ml Syr (Rad Only) IV 06/24/24 02:18 10 ml NEEDED PRN Administration Maintain IV Site Discontinued Medications Generic Name Dose Route Start Last Admin Trade Name Freq PRN Reason Stop Dose Admin Lactated Ringer's 1,000 mls @ 999 mls/hr 05/25/24 00:52 05/25/24 01:05 Lactated Ringer's 1000 Ml Bag IV 05/25/24 01:52 999 mls/hr .Q1H1M ONE Administration Iopamidol 70 ml 05/25/24 02:19 05/25/24 02:20 Iopamidol-370 (76%);100ml Bottle IV 05/25/24 02:20 70 ml ONCE ONE Administration Ketorolac Tromethamine 15 mg 05/25/24 01:09 05/25/24 01:13 Ketorolac 30mg/Ml Vial IV 05/25/24 01:10 15 mg ONCE ONE Administration Ondansetron HCl 4 mg 05/25/24 01:54 05/25/24 01:58 Ondansetron 4mg/2ml Vial IV 05/25/24 01:55 4 mg ONCE ONE Administration Sodium Chloride 50 ml 05/25/24 02:19 05/25/24 02:20 0.9 % Sodium Chloride 50 Ml Vial IV 05/25/24 02:20 50 ml ONCE ONE Administration Sucralfate 1 gm 05/25/24 00:53 05/25/24 00:59 Sucralfate 1gm/10ml Susp Udc PO 05/25/24 00:54 Not Given ONCE ONE Sucralfate 1 gm 05/25/24 00:58 05/25/24 01:06 Sucralfate 1gm Tablet PO 05/25/24 00:59 1 gm ONCE ONE Administration ORDERS Category Date Time Status CT angio chest PE protocol Stat Cat Scan 05/25/24 01:54 Completed CXR --portable [XR chest portable] Stat Exams 05/25/24 00:52 Completed CBC w/Auto Diff [Complete Blood Count Auto Diff] Stat Lab 05/25/24 00:00 Completed CMP [Comprehensive Metabolic Panel] Stat Lab 05/25/24 00:00 Completed D-Dimer Stat Lab 05/25/24 00:00 Completed PT INR [Prothrombin Time INR] Stat Lab 05/25/24 00:00 Completed Trop I [Troponin I] Stat Lab 05/25/24 00:00 Completed Troponin I Q3H Lab 05/25/24 03:03 Completed Troponin I Q3H Lab 05/25/24 07:00 Ordered MDM Narrative Medical Decision Narrative: In summary, this 49-year-old male presents to the emergency department today with chest pain worse with deep breathing. On initial evaluation patient is hemodynamically stable, afebrile, patient does have tenderness along the costochondral junctions, no findings of trauma, cardiopulmonary exam overall is reassuring. Differential diagnosis includes but is not limited to ACS, PE, electrolyte abnormality, esophageal spasm, medication noncompliance in the setting of known ulcer which is a comorbidity of his current condition and could be causing his pain. Based on these concerns, I ordered cardiac workup, ECG, serum labs. ECG personally interpreted demonstrates normal sinus rhythm, rate 79, right axis deviation, normal RI and QTc, no STEMI. Patient received Carafate, IV fluids for treatment. Labs personally reviewed demonstrate mild leukocytosis, WBC 12.4, no anemia, normal platelets at 321, PT/INR normal, CMP nonactionable, initial troponin undetectably low at less than 0.01, serial troponin is necessary given onset timing of patient's pain. He was placed in the ED observation at 0115 for serial troponins to rule out evolving NE and preclude unnecessary admission. D-dimer resulted positive at 1.76, CTA PE was ordered and added to workup. XR personally interpreted demonstrates no acute intrathoracic abnormality, no lobar infiltrate, see radiology read for final interpretation. CT imaging personally interpreted demonstrate no obvious pulmonary embolism on my personal interpretation, patient does have emphysema as well as pulmonary nodules. See radiology read for final interpretation. Incidental findings were discussed with the patient. Patient developed vomiting in the ER. He states this is a common problem for him and he randomly has emesis frequently. He received Zofran. He also continued complaining of pain and received Toradol. 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 Since receiving Zofran he has been able to tolerate oral intake. His chest pain is improved. Repeat troponin undetectably low at less than 0.01. No delta. He is reassured by our workup. He does not require admission at this time and is appropriate for discharge. Patient was given instructions on symptomatic management, follow up instructions, and return precautions for the emergency department. Patient indicated understanding and was discharged in stable condition. Total time in ED observation: 2 hours 20 minutes
[2024-05-25 00:59] LABS: Basophils # 0.1 K/mm3 (0-0.2); Basophils % 0.8 % (0.1-2.0); Eosinophils # 0.2 K/mm3 (0.0-0.4); Eosinophils % 1.8 % (0.1-12.0); Hematocrit 49.2 % (42.0-52.0); Hemoglobin 16.3 g/dL (14.1-18.0); Lymphocytes # 2.7 K/mm3 (0.7-4.5); Lymphocytes % 21.6 % (10-50); Mean Corpuscular HGB Conc 33.2 g/dL (31.8-35.4); Mean Corpuscular Hemoglobin 32.1 pg (27.0-31.2); Mean Corpuscular Volume 96.8 fl (80-94); Mean Platelet Volume 8.1 fl (7.4-10.4); Monocytes # 0.6 K/mm3 (0.1-1.0); Monocytes % 5.2 % (1.7-9.3); Neutrophils # 8.8 K/mm3 (1.8-7.8); Neutrophils % 70.7 % (37.0-80.0); Platelet Count 321 K/mm3 (142-424); Red Blood Count 5.08 M/mm3 (4.60-6.20); Red Cell Distribution Width 15.3 % (11.5-17.5); White Blood Count 12.4 K/mm3 (4.8-10.8)
[2024-05-25 01:01] LABS: Chloride 106 mmol/L (98-107); Sodium 140 mmol/L (136-145)
[2024-05-25 01:04] LABS: Alanine Aminotransferase 12 U/L (12-78); Albumin/Globulin Ratio 1.2 (1.1-1.8); Aspartate Amino Transferase 19 U/L (17-59); Bilirubin,Total 0.3 mg/dl (0.2-1.3); Blood Urea Nitrogen 11 mg/dl (9-20); Calcium 9.3 mg/dl (8.4-10.2); Carbon Dioxide 29 mmol/L (22.0-30.0); Creatinine Clearance Estimated 100 mL/min (50-200); Estimated Glomerular Filt Rate 89 ml/min (>60); GFR (African American) 108 ML/MIN (>60); Globulin 3.3 g/dL (1.3-3.2); Glucose 100 mg/dl (74-100); Total Protein,Serum 7.3 g/dl (6.3-8.2)
[2024-05-25 01:05] LABS: INR 0.93 (0.9-1.1); Prothrombin Time 10.5 seconds (10.1-12.5)
[2024-05-25] MEDS: LACTATED RINGERS 1000ML 1,000 ML 999 ML IV (01:05)
[2024-05-25] MEDS: SUCRALFATE 1GM TABLET 1 GM PO (01:06)
[2024-05-25] MEDS: KETOROLAC 30MG/ML VIAL 15 MG IV (01:13)
[2024-05-25 01:20] LABS: Alkaline Phosphatase 80 U/L (38-126); Troponin I < 0.01 ng/ml (0.00-0.034)
[2024-05-25 01:37] LABS: D-Dimer 1.76 ug/mL (0.0-0.5)
--- NOTE | 2024-05-25 01:52 | PC.NURSE ---
Notified provider of elevated d-dimer, verbal orders received at this time.
--- NOTE | 2024-05-25 01:54 | CT_ITS ---
PROCEDURE INFORMATION: Exam: CTA Chest With Contrast Exam date and time: 05/25/2024 2:03 AM Age: 49 years old Clinical indication: Pain; Chest pressure; Additional info: Chest pain, elevated d-dimer TECHNIQUE: Imaging protocol: Computed tomographic angiography of the chest with contrast. Exam focused on the arteries. 3D rendering (Not supervised by radiologist): MIP and/or 3D reconstructed images were created by the technologist. Radiation optimization: All CT scans at this facility use at least one of these dose optimization techniques: automated exposure control; mA and/or kV adjustment per patient size (includes targeted exams where dose is matched to clinical indication); or iterative reconstruction. Contrast material: ISOUVE 370; Contrast volume: 70 ml; Contrast route: INTRAVENOUS (IV); COMPARISON: 1. CR XR CHEST PORTABLE 05/25/2024 1:06 AM 2. CR XR CHEST PORTABLE 03/28/2024 3:50 PM 3. CR XR CHEST PORTABLE 01/20/2024 12:03 AM FINDINGS: Pulmonary arteries: There is no evidence for clinically relevant pulmonary arterial filling defect. Tiny distal filling defects may be present but are of dubious clinical significance. Aorta: There is atherosclerotic disease of the visualized aorta and its major branch vessels. Lungs: There are scattered areas of emphysema throughout the lungs. Scattered areas of bronchial wall thickening which are likely chronic inflammatory. A few areas of subpleural reticulation are noted, nonspecific. There are scattered calcified granulomas in the lungs which most likely reflect prior granulomatous disease. There is a 9 mm pleural-based nodule in the right lower lobe (image 43 series 5) as well as additional right lower lobe pulmonary nodules measuring up to 9 mm. Pleural spaces: Unremarkable. No pneumothorax. No pleural effusion. Heart: Unremarkable. No cardiomegaly. No pericardial effusion. Lymph nodes: Unremarkable. No enlarged lymph nodes. Bones/joints: There is diffuse degenerative disease of the visualized osseous structures. Soft tissues: There is bilateral gynecomastia. IMPRESSION: 1. No dense parenchymal consolidation, pleural effusion, or pneumothorax. 2. No evidence for clinically relevant pulmonary arterial filling defect. 3. Advanced emphysema. 4. Multiple right lower lobe pulmonary nodules amongst other small nodules throughout the lungs which measure up to 9 mm. For patients at low risk (minimal or absent history of smoking and of other known risk factors), recommend CT Chest at 3-6 months, then consider CT Chest at 18-24 months. For patients at high risk (history of smoking or of other known risk factors), recommend CT Chest at 3-6 months, then CT Chest at 18-24 months. (Reference: Surya) COMMENTS: The presence of pulmonary emphysema on CT is an independent risk factor for lung cancer. In the absence of a history or active diagnosis of lung cancer, it is recommended that this patient with emphysema be evaluated for enrollment in a low dose CT lung cancer screening program. REFERENCES: Surya Olivera, et al. Guidelines for Management of Incidental Pulmonary Nodules Detected on CT Images: From the Fleischner Society 2017. Radiology. 2017;284(1):228-243.
[2024-05-25] MEDS: ONDANSETRON 4MG/2ML VIAL 4 MG IV (01:58)
[2024-05-25] MEDS: SODIUM CHLORIDE 0.9% 10ML SYR (RAD ONLY) 10 ML IV (02:20)
[2024-05-25] MEDS: IOPAMIDOL-370 (76%);100ML BOTTLE 70 ML IV (02:20)
[2024-05-25] MEDS: 0.9 % SODIUM CHLORIDE 50 ML VIAL IV (02:20)
--- NOTE | 2024-05-25 03:14 | PC.NURSE ---
UPDATED FAMILY ON PT CONDITION
[2024-05-25 03:31] LABS: Troponin I < 0.01 ng/ml (0.00-0.034)
[2024-05-25 03:36] VITALS: BP 138/76; PULSE 90; RESP 20; TEMP 36.5; O2SAT 96
== END 2024-05-25 03:43 | disposition home or self-care (01) ==
PROVIDERS: Emergency Provider Emergency Medicine; PCP Family Medicine
DX: R07.9 Chest pain, unspecified (principal); J43.9 Emphysema, unspecified; R91.1 Solitary pulmonary nodule; F17.210 Nicotine dependence, cigarettes, uncomplicated; R11.10 Vomiting, unspecified
CPT/HCPCS: 71045; 71275; 80053; 84484; 85025; 85378; 85610; 93005; 96361; 96374; 96375; 99285; J1885; J2405; J7120; Q9967

== ENCOUNTER 2024-07-09 15:40 | Emergency (ER) | payer MEDICAID, SELFPAY ==
[2024-07-09] VITALS (7 sets, daily range): BP systolic 106–128; BP diastolic 71–88; PULSE 80–96; RESP 14–23; TEMP 36.7–36.9; O2SAT 95–98; BMI 27.0
--- NOTE | 2024-07-09 15:36 | ECG_ITS ---
APPROVED REPORT Exam: Resting ECG HR:95 bpm ECG Measurements Heart Rate 95 AXES MS 141 P 70 QRSd 115 QRS -75 QT 370 T 69 QTc 423 Conclusion SINUS RHYTHM WITH FREQUENT SUPRAVENTRICULAR PREMATURE COMPLEXES LEFT ANTERIOR FASCICULAR BLOCK [QRS AXIS <= -45, QR IN I, RS IN II] Electronically signed by : KSENIA BISWAS, 07/09/2024 16:14:01
--- NOTE | 2024-07-09 15:41 | XR_ITS ---
FINAL REPORT CLINICAL HISTORY: chest pain COMPARISON: 06/19/2024 FINDINGS: Two views of the chest were obtained. The heart size and pulmonary vascularity are within normal limits. The mediastinum is normal. No acute pulmonary abnormality is identified. There is no pneumothorax. The bony thorax is intact. IMPRESSION: No active cardiopulmonary disease. Reviewed, Interpreted and Dictated by Faizan Yadav III, MD Transcribed by Pamela Dgeroot Authenticated and [facility]
--- NOTE | 2024-07-09 15:44 | HMH.EDCP ---
Discharge Plan Disposition Patient Disposition: Home, Self-Care Condition: Good Chief Complaint: Chest Pain Prescriptions Prescriptions: No Action methotrexate sodium 2.5 MG tablet 2.5 mg PO DAILY folic acid 1 MG tablet 1 mg PO DAILY polyethylene glycol 3350 17 GM powder in packet 17 gm PO DAILY loratadine 10 MG tablet 10 mg PO DAILY metoclopramide HCl 10 MG tablet 10 mg PO QID pantoprazole 40 MG tablet,delayed release (DR/EC) 40 mg PO DAILY prednisone 5 MG tablet 5 mg PO DAILY ondansetron HCl 4 MG tablet 4 mg PO TID Qty: 21 0RF Referrals Follow up/Referrals: Doug Rodriguez MD [Staff Physician] - See instructions Provider,MD Satya [Referring] - See instructions Activity Restrictions/Add. Instructions Additional Instructions/Restrictions: It is recommended that you continue your medications as prescribed and follow-up with your primary care provider, rheumatoid specialist and travel registered nurse nicu for continued evaluation and management. Return for any new or worsening symptoms. Clinical Impressions Clinical Impression: Chest pain Instructions Patient Instructions: DI for Atypical Chest Pain, DI for Chronic Pain -- Adult Print Language Print Language: Gambian Discharge ED Provider: Carla Araujo General Chief Complaint: Chest Pain Stated Complaint: Chest pain Time Seen by Provider: 07/09/24 15:42 Mode of Arrival: Ambulatory Source of Information: Patient and EMS Limitations: No Limitations History of Present Illness HPI narrative: Patient is a 49-year-old male with past medical history psychiatric disorder, RA, COPD presenting with chest pain. He is at [facility] residing there currently and is reportedly new, has not had his medications for the past 2 weeks as the doctor has not been present at the facility and he states that last night into this morning he started to have some chest pain that is sharp, midsternal and radiating into his left arm. The nurse for [facility] reportedly came in today but told the facility she had COVID and did not see any patients therefore prompting them to call EMS for this patient, he was given aspirin load and 1 dose of nitroglycerin which did decrease his blood pressure from the 140s to the 119. He does note some continued pain and the nitroglycerin did not help with his pain. He does note some lower extremity edema but does not believe he takes any Lasix and there are no Lasix listed on his home medication list on methotrexate is listed as 1 as well as an inhaler. He denies any prior VA or blood thinners. Related Data Home Medications ?Medication ?Instructions ?Recorded ?Confirmed folic acid 1 mg tablet 1 mg PO DAILY Diet supplement 10/22/19 05/25/24 methotrexate sodium 2.5 mg tablet 2.5 mg PO DAILY Rheumatoid 10/22/19 05/25/24 arthritis loratadine 10 mg tablet 10 mg PO DAILY ALLERGIES 04/30/21 05/25/24 metoclopramide HCl 10 mg tablet 10 mg PO QID STOMACH 04/30/21 05/25/24 pantoprazole 40 mg tablet,delayed 40 mg PO DAILY GERD 04/30/21 05/25/24 release polyethylene glycol 3350 17 gram 17 gm PO DAILY CONSTIPATION 04/30/21 05/25/24 oral powder packet prednisone 5 mg tablet 5 mg PO DAILY INFLAMMATION 04/30/21 05/25/24 Previous Rx's ?Medication ?Instructions ?Recorded ondansetron HCl 4 mg tablet 4 mg PO TID nausea #21 tabs 05/01/21 Allergies Allergy/AdvReac Type Severity Reaction Status Date / Time No Known Allergies Allergy Verified 07/10/18 01:17 [facility] Disclaimer: The information contained in this section may have been updated after the patient was seen, as this information can be updated by other users. Social History Smoking Status: Current every day smoker tobacco type: cigarettes packs per day: 1 alcohol intake: never current occupational status: employed Travel in the last 8 weeks: None household members: significant other housing: house ROS Obtained: Yes Systems reviewed as appropriate & no additional complaints except as documented Physical Exam General General appearance: alert and in no apparent distress Chest Chest inspection: Present normal inspection and symmetric chest wall rise Respiratory Respiratory exam: Present normal lung sounds bilaterally; Absent respiratory distress Cardiovascular Cardiovascular exam: Present regular rate and normal rhythm Abdominal Exam Abdominal exam: Present soft; Absent tenderness Extremities Exam Extremities exam: Present normal inspection and other (BLE 2+ pitting edema to knees) Neurological Exam Neurological exam: Present alert and oriented X3 Psychiatric Psychiatric exam: Present normal affect HEART Score HEART Score HEART Score assessment performed?: Yes History (anamnesis): Moderately suspicious ECG: Non-specific disturbance Age: 45-65 years Risk factors: 1-2 risk factors Troponin: </= normal limit HEART Score: 4 Critical Care Critical Care Time Critical Care Time: No Medical Decision Making Medical Records Medical records reviewed: Yes I reviewed the patient's medical records. Bertin Inquiry Pt receiving controlled substance: No Vital Signs Vital Signs: 07/09/24 15:40 07/09/24 15:49 07/09/24 16:00 Temperature 98.0 F Temperature Source Oral Pulse Rate 90 94 H Pulse Rate [Right Radial] 96 H Respiratory Rate 18 14 Blood Pressure 123/88 Blood Pressure [Right Arm] 124/76 Blood Pressure Mean [Right Arm] 92 02 Sat by Pulse Oximetry 95 97 Oxygen Delivery Method Room Air 07/09/24 16:30 Temperature Temperature Source Pulse Rate 94 H Pulse Rate [Right Radial] Respiratory Rate 22 Blood Pressure 107/73 L Blood Pressure [Right Arm] Blood Pressure Mean [Right Arm] 02 Sat by Pulse Oximetry 96 Oxygen Delivery Method Lab Data Lab results reviewed: Yes I reviewed the patient's lab results. Labs: Lab Results 07/09/24 15:30: WBC 11.0 H, RBC 4.21 L, Hgb 12.8 L, Hct 39.9 L, MCV 94.8 H, MCH 30.5, MCHC 32.1, RDW 15.8, Plt Count 505 H, MPV 8.3, Neut % (Auto) 67.7, Lymph % (Auto) 23.0, [place] % (Auto) 5.5, Eos % (Auto) 3.0, Baso % (Auto) 0.9, Neut # (Auto) 7.4, Lymph # (Auto) 2.5, [place] # (Auto) 0.6, Eos # (Auto) 0.3, Baso # (Auto) 0.1, Sodium 139, Potassium 3.9, Chloride 108 H, Carbon Dioxide 29, Anion Gap 5.9, BUN 8 L, Creatinine 0.80, Estimated Creat Clear 128, Estimated GFR 102, Est GFR ( Amer) 123, Glucose 112 H, Calcium 8.3 L, Total Bilirubin 0.4, AST 24, ALT 17, Alkaline Phosphatase 70, Troponin I < 0.01, NT-Pro-B Natriuret Pep 28.4, Total Protein 6.9, Albumin 3.6, Globulin 3.3 H, Albumin/Globulin Ratio 1.1 07/09/24 15:30 07/09/24 15:30 Response Orders (Tests/Meds): ED MEDICATIONS Discontinued Medications Generic Name Dose Route Start Last Admin Trade Name Freq PRN Reason Stop Dose Admin Morphine Sulfate 2 mg 07/09/24 15:42 07/09/24 15:58 Morphine 2mg/Ml Syringe IV 07/09/24 15:43 2 mg ONCE ONE Administration Ondansetron HCl 2 mg 07/09/24 15:40 07/09/24 15:58 Ondansetron 4mg/2ml Vial IV 07/09/24 15:41 2 mg ONCE ONE Administration ORDERS Category Date Time Status XR chest 2V Stat Exams 07/09/24 15:41 Completed Complete Blood Count Auto Diff Stat Lab 07/09/24 15:30 Completed Comprehensive Metabolic Panel Stat Lab 07/09/24 15:30 Completed NT Pro Brain Natriuretic Pep. Stat Lab 07/09/24 15:30 Completed Troponin I Stat Lab 07/09/24 15:30 Completed CA venous doppler LE BI Stat Y 07/09/24 16:30 Completed ECG Data Tracing #1: Attestation: I reviewed this ECG and interpreted as documented below: ECG Narrative: EKG showing sinus rhythm at a rate of 95, normal intervals, left anterior fascicular block, no acute ischemia or infarction ECG initial impression date: 07/09/24 ECG initial impression time: 15:36 MDM Narrative Medical Decision Narrative: Patient is a 49-year-old male with past medical history psychiatric disorders, rheumatoid arthritis, COPD presenting with chest pain. Chest pain reportedly started last night into today that is sharp and radiating towards left shoulder. He does note some history of cardiac issues though he is not able to specify further and states he is not currently on any cardiac meds, denies any history of VA or known CHF. Notably family did call the ER today to help provide further history stating that patient is sometimes slow and can be a poor historian though they corroborated the information that patient was able to provide to us today. His exam is overall unremarkable except for some 2+ lower extremity pitting edema to the ankles, 1+ going towards the knees. Will obtain labs for further management. EKG on arrival showing sinus rhythm without acute ischemia or infarction, CBC and CMP nonactionable, BNP is not elevated at 28.4, chest x-ray showing no acute process, troponin is negative, DVT ultrasound study of the bilateral lower extremities is negative for acute DVT or abnormality but does have Donovan's cyst of the bilateral knees most notably with the left side that seems to go down to the upper lower extremity but this does seem to be a contained cystic structure and not aneurysmal. Discussed this with patient and he is presently asymptomatic. Will recommend that he is given his prescribed medications and recommended close follow-up with his primary care provider and rheumatoid specialist. Given heart score of 4 will have patient follow-up with cardiology as well outpatient. Patient expressed understanding and agreement with this and discharged in stable condition.
[2024-07-09 15:55] LABS: Basophils # 0.1 K/mm3 (0-0.2); Basophils % 0.9 % (0.1-2.0); Eosinophils # 0.3 K/mm3 (0.0-0.4); Hematocrit 39.9 % (42.0-52.0); Hemoglobin 12.8 g/dL (14.1-18.0); Lymphocytes # 2.5 K/mm3 (0.7-4.5); Mean Corpuscular HGB Conc 32.1 g/dL (31.8-35.4); Mean Corpuscular Hemoglobin 30.5 pg (27.0-31.2); Mean Corpuscular Volume 94.8 fl (80-94); Mean Platelet Volume 8.3 fl (7.4-10.4); Monocytes # 0.6 K/mm3 (0.1-1.0); Monocytes % 5.5 % (1.7-9.3); Neutrophils # 7.4 K/mm3 (1.8-7.8); Neutrophils % 67.7 % (37.0-80.0); Platelet Count 505 K/mm3 (142-424); Red Blood Count 4.21 M/mm3 (4.60-6.20); Red Cell Distribution Width 15.8 % (11.5-17.5)
[2024-07-09 15:57] LABS: Albumin Level 3.6 g/dl (3.5-5.0); Chloride 108 mmol/L (98-107); Potassium 3.9 mmoL/L (3.5-5.1); Sodium 139 mmol/L (136-145)
[2024-07-09] MEDS: ONDANSETRON 4MG/2ML VIAL 2 MG IV (15:58)
[2024-07-09] MEDS: MORPHINE 2MG/ML SYRINGE 2 MG IV (15:58)
[2024-07-09 16:00] LABS: Alanine Aminotransferase 17 U/L (12-78); Albumin/Globulin Ratio 1.1 (1.1-1.8); Alkaline Phosphatase 70 U/L (38-126); Anion Gap 5.9 mEq/L (5-15); Aspartate Amino Transferase 24 U/L (17-59); Bilirubin,Total 0.4 mg/dl (0.2-1.3); Blood Urea Nitrogen 8 mg/dl (9-20); Calcium 8.3 mg/dl (8.4-10.2); Carbon Dioxide 29 mmol/L (22.0-30.0); Creatinine Clearance Estimated 128 mL/min (50-200); Estimated Glomerular Filt Rate 102 ml/min (>60); GFR (African American) 123 ML/MIN (>60); Globulin 3.3 g/dL (1.3-3.2); Glucose 112 mg/dl (74-100); Total Protein,Serum 6.9 g/dl (6.3-8.2)
[2024-07-09 16:09] LABS: NT Pro Brain Natriuretic Pep. 28.4 pg/mL (0-125)
[2024-07-09 16:25] LABS: Troponin I < 0.01 ng/ml (0.00-0.034)
--- NOTE | 2024-07-09 16:30 | CA_ITS ---
FINAL REPORT CLINICAL HISTORY: ble swelling. Denies trauma. Smoker. Pitting edema noted to bilateral lower extremities. COMPARISON: None FINDINGS: Color Doppler, duplex Doppler and compression sonography of the bilateral lower extremities was performed. There is no evidence of deep venous thrombosis from the level of the groin to the calf. The deep veins are patent and compressible. Note is made of bilateral popliteal cysts. IMPRESSION: No evidence of deep venous thrombosis bilateral lower extremities. Bilateral popliteal cysts. Reviewed, Interpreted and Dictated by Faizan Yadav III, MD Transcribed by Kathleen Ayoub Authenticated and [facility]
--- NOTE | 2024-07-09 16:48 | PC.NURSE ---
Rounded on PT. PT stated he doesn't need anything at this time.
--- NOTE | 2024-07-09 17:00 | PC.NURSE ---
doppler at bedside
--- NOTE | 2024-07-09 17:38 | PC.NURSE ---
Dave brooks contacted, staff states they will be here in about 30 minutes to pick pt up
== END 2024-07-09 18:29 | disposition home or self-care (01) ==
PROVIDERS: Emergency Provider Emergency Medicine; PCP Internal Medicine Adolescent Medicine
DX: R07.9 Chest pain, unspecified (principal); R60.0 Localized edema; I44.4 Left anterior fascicular block; J44.9 Chronic obstructive pulmonary disease, unspecified; F17.210 Nicotine dependence, cigarettes, uncomplicated; M06.9 Rheumatoid arthritis, unspecified
CPT/HCPCS: 71046; 80053; 83880; 84484; 85025; 93005; 93970; 96374; 96375; 99285; J2270; J2405

== ENCOUNTER 2024-08-28 10:35 | Outpatient (RCR) | payer MEDICAID, SELFPAY | END 2024-08-28 10:40 | disposition home or self-care (01) | LOC: PT 10:35 | PROVIDERS: PCP Internal Medicine Adolescent Medicine; Visit Provider Nurse Practitioner Family | DX: R60.9 Edema, unspecified (principal) | CPT/HCPCS: 97163 ==

== ENCOUNTER 2024-09-29 11:41 | Outpatient (CLI) | payer MEDICAID, SELFPAY ==
--- NOTE | 2024-09-29 | CA_ITS ---
APPROVED REPORT Exam: Pharmacologic Technologist: Karen Carrillo Ht: 5 ft 9 in Wt: 174 lbs BSA: 1.95 m2 HR: 76 bpm BP: 110/75 mmHg Stress Test Details Test: Lexiscan HR Resting HR: 76 bpm Max Heart Rate (APMHR): 169.675903 bpm Max HR Achieved: 110 bpm Target HR (85% APMHR): 143.284776 bpm % of APMHR: 65.09 Recovery HR: 89 bpm BP Resting BP: 110.0/75.0 mmHg Max BP: 121.0/75.0 mmHg Recovery BP: 112.0/75.0 mmHg ECG Stress ECG Conclusion Symptoms: None Arrhythmias/Ectopy: None ST-T Changes: < 1.[address] segment changes Conclusion: Non-diagnostic Lexiscan stress test. Electronically signed by : April Blair MD 09/30/2024 13:00:19
--- NOTE | 2024-09-29 11:45 | NM_ITS ---
APPROVED REPORT Exam: Nuclear Stress Test Indication: chest pain Patient Location: Outpatient Stress Tech: Karen Carrillo DC Tech:ALLIE Fung RT(R)(N) Ht: 5 ft 9 in Wt: 160 lbs HR: 82 bpm BP: 110/75 mmHg BSA: 1.88 m2 TID: 0.99 BMI: 23.6 History: chest pain Procedure: Patient received 0.4 mg of intravenous Lexiscan, resting heart rate 82 bpm, resting blood pressure 110/75 mmHg, with Lexiscan maximum heart rate achieved was 111 bpm which is 85 % of the maximum predicted heart rate and blood pressure was 120/77 mmHg. With Lexiscan, patient denied any complaint of chest pain. The patient was not able to lay on his abdomen for prone images. Cardiac Stress and Resting SPECT Images: Cardiac Stress and Resting SPECT images were obtained using technetium 99m Myoview 31.3 mCi stress and 10.38 mCi at rest. The patient is unable to lie on his abdomen. Therefore, prone stress imaging could not be performed. This may affect the diagnostic interpretation of the study findings. Resting and stress imaging in supine positions demonstrate a large sized, mild, partially reversible perfusion defect in the inferior LV wall. Gated imaging demonstrates normal global and regional LV systolic function. LVEF is calculated at 54%. Conclusion: Technically difficult study. Large sized, mild, partially reversible perfusion defect in the inferior LV wall. Findings are suggestive of partial reversible ischemia Gated imaging demonstrates normal global and regional LV systolic function. LVEF is calculated at 54%. In the setting of technically difficult study, further evaluation noninvasively suggested with CCTA prior to proceeding with invasive coronary angiography to rule out coronary ischemia. Electronically signed by : April Blair MD 09/30/2024 13:04:12
[2024-09-29] MEDS: ISOTOPE MYOVIEW (PER STUDY) 1 DOSE IV (14:35)
[2024-09-29] MEDS: SODIUM CHLORIDE 0.9% 10ML SYR (RAD ONLY) 10 ML IV ×2 (14:35)
[2024-09-29] MEDS: REGADENOSON 0.4MG/5ML SYRINGE 0.4 MG IV (14:35)
== END 2024-09-29 23:59 | disposition home or self-care (01) ==
LOC: RAD 11:42
PROVIDERS: PCP Nurse Practitioner Family; Visit Provider Nurse Practitioner Family
DX: R94.31 Abnormal electrocardiogram [ECG] [EKG] (principal); R07.9 Chest pain, unspecified
CPT/HCPCS: 78452; 93017; 93018; A9502; J2785

== ENCOUNTER 2024-10-09 19:18 | Emergency (ER) | payer MEDICAID, SELFPAY ==
[2024-10-09] VITALS (12 sets, daily range): BP systolic 106–124; BP diastolic 69–90; PULSE 63–81; RESP 16–20; TEMP 37.2–37.3; O2SAT 96–99; BMI 25.1
--- NOTE | 2024-10-09 19:22 | ED_ITS ---
<Statement entered by Ramu Aleman MD - 10/09/24 21:24> I was consulted by the ANDREW, and we discussed the complexity of the problems being addressed. I approved the treatment and management plan for this patient's care in the emergency department, thus performing a substantive portion of the medical decision making. Ramu Aleman MD, FATEMEH, FACEP Discharge Plan Disposition Patient Disposition: Home, Self-Care Condition: Good Chief Complaint: Extremity Injury, Lower Prescriptions Prescriptions: No Action aspirin [Adult Aspirin Regimen] 81 mg tablet,delayed release (DR/EC) 81 mg PO DAILY Qty: 30 2RF methotrexate sodium 2.5 MG tablet 2.5 mg PO DAILY folic acid 1 MG tablet 1 mg PO DAILY polyethylene glycol 3350 17 GM powder in packet 17 g PO DAILY loratadine 10 MG tablet 10 mg PO DAILY metoclopramide HCl 10 MG tablet 10 mg PO QID pantoprazole 40 MG tablet,delayed release (DR/EC) 40 mg PO DAILY prednisone 5 MG tablet 5 mg PO DAILY ondansetron HCl 4 MG tablet 4 mg PO TID Qty: 21 0RF Referrals Follow up/Referrals: Mary Kate Benito APRN [Primary Care Provider] - See instructions Activity Restrictions/Add. Instructions Additional Instructions/Restrictions: We will schedule you for an outpatient bilateral lower extremity ultrasound to rule out DVT. Return for any worsening signs or symptoms as needed. Clinical Impressions Clinical Impression: Cellulitis of leg, right Print Language Print Language: Kinyarwanda Discharge ED Provider: Ramu Aleman General Adult HPI General Chief complaint: Extremity Injury, Lower Stated complaint: leg swelling Time Seen by Provider: 10/09/24 19:22 History of Present Illness HPI narrative: Patient presents for evaluation of swelling of the right lower extremity. Patient has known rheumatoid arthritis however he is on no disease modifying medications currently. Patient states that he has been having right lower extremity pain and redness without trauma. Denies any fever chills hemoptysis hematochezia melena nausea vomiting diarrhea. Patient walks with a cane normally however it has been more painful lately. Related Data Home Medications ?Medication ?Instructions ?Recorded ?Confirmed folic acid 1 mg tablet 1 mg PO DAILY Diet supplement 10/22/19 08/21/24 methotrexate sodium 2.5 mg tablet 2.5 mg PO DAILY Rheumatoid 10/22/19 08/21/24 arthritis loratadine 10 mg tablet 10 mg PO DAILY ALLERGIES 04/30/21 08/21/24 metoclopramide HCl 10 mg tablet 10 mg PO QID STOMACH 04/30/21 08/21/24 pantoprazole 40 mg tablet,delayed 40 mg PO DAILY GERD 04/30/21 08/21/24 release polyethylene glycol 3350 17 gram 17 g PO DAILY CONSTIPATION 04/30/21 08/21/24 oral powder packet prednisone 5 mg tablet 5 mg PO DAILY INFLAMMATION 04/30/21 08/21/24 Previous Rx's ?Medication ?Instructions ?Recorded ondansetron HCl 4 mg tablet 4 mg PO TID nausea #21 tabs 05/01/21 aspirin 81 mg tablet,delayed 81 mg PO DAILY #30 tabs 08/21/24 release (Adult Aspirin Regimen) Allergies Allergy/AdvReac Type Severity Reaction Status Date / Time No Known Allergies Allergy Verified 08/21/24 14:44 [facility] Disclaimer: The information contained in this section may have been updated after the patient was seen, as this information can be updated by other users. Medical History (Updated 10/09/24 @ 20:55 by JOSELITO Murray) Rheumatoid arthritis Abnormal electrocardiogram [ECG] [EKG] Emphysema of lung History of kidney stones Surgical History History of colonoscopy History of cholecystectomy Social History Smoking Status: Current every day smoker tobacco type: cigarettes packs per day: 1 alcohol intake: never current occupational status: employed Travel in the last 8 weeks: None household members: significant other housing: house Have you lived/traveled outside [place] in past 30 days?: No Contact w/someone who lives/traveled outside US past 30 days?: No Exposure to someone with infectious disease in past 14 days?: No Do you have a fever (greater than 100.4 F or 38 C)?: No Have you tested positive for COVID-19: No Exposed to someone with COVID-19 in past 14 days?: No Do you have a sore throat?: No Do you have a cough?: No Do you have any weakness?: No Do you have any diarrhea?: No Are you experiencing any unusual bleeding?: No Do you have any muscle aches/pain?: No Do you have any abdominal pain?: No Are you experiencing loss of taste or smell?: No Other Medical History Have you received the Flu Vaccine for this season: No Have you received the Pneumonia Vaccine: No ROS Obtained: Yes Systems reviewed as appropriate & no additional complaints except as documented Physical Exam General General appearance: alert and in no apparent distress Respiratory Respiratory exam: Present normal lung sounds bilaterally Cardiovascular Cardiovascular exam: Present regular rate Neurological Exam Neurological exam: Present alert and oriented X3 Medical Decision Making Medical Records Medical records reviewed: Yes I reviewed the patient's medical records. Screening: Per USPSTF and CDC recommendations, given the prevalence of disease in our region, it is our hospital?s policy to screen for HIV and viral Hepatitis for all patients aged 18 and over and those with ongoing risk factors. Bertin Inquiry Pt receiving controlled substance: No Vital Signs: 10/09/24 19:21 Temperature 99.1 F Temperature Source Oral Pulse Rate [Right Brachial] 68 Respiratory Rate 16 Blood Pressure [Right Arm] 116/79 Blood Pressure Mean [Right Arm] 91 Blood Pressure Source [Right Arm] Automatic Cuff Blood Pressure Position [Right Arm] Sitting 02 Sat by Pulse Oximetry 96 Oxygen Delivery Method Room Air Lab Data Lab results reviewed: Yes I reviewed the patient's lab results. Lab Results 10/09/24 19:53: WBC 8.7, RBC 4.69, Hgb 14.4, Hct 43.1, MCV 92.1, MCH 30.6, MCHC 33.3, RDW 15.5, Plt Count 271, MPV 6.9 L, Neut % (Auto) 68.9, Lymph % (Auto) 21.9, [place] % (Auto) 4.5, Eos % (Auto) 2.1, Baso % (Auto) 2.6 H, Neut # (Auto) 6.0, Lymph # (Auto) 1.9, [place] # (Auto) 0.4, Eos # (Auto) 0.2, Baso # (Auto) 0.2, D-Dimer 1.90 H, Sodium 139, Potassium 3.6, Chloride 104, Carbon Dioxide 29, Anion Gap 9.6, BUN 8 L, Creatinine 0.80, Estimated Creat Clear 119, Estimated GFR 102, Est GFR ( Amer) 123, Glucose 109 H, Calcium 8.4, Magnesium 1.9, Total Bilirubin 0.4, AST 26, ALT 20, Alkaline Phosphatase 78, Total Protein 6.9, Albumin 3.9, Globulin 3.0, Albumin/Globulin Ratio 1.3 10/09/24 19:53 10/09/24 19:53 Orders (Tests/Meds): ORDERS Category Date Time Status POCUS Point of Care (ER Only) Stat Exams 10/09/24 19:43 Ordered CBC w/Auto Diff [Complete Blood Count Auto Diff] Stat Lab 10/09/24 19:53 Completed CMP [Comprehensive Metabolic Panel] Stat Lab 10/09/24 19:53 Completed D-Dimer Stat Lab 10/09/24 19:53 Completed HIV (1&2) Antibody Rapid Stat Lab 10/09/24 19:53 Received Hep C Ab with Reflex to RNA Stat Lab 10/09/24 19:53 Received Magnesium Stat Lab 10/09/24 19:53 Completed Medical Decision Narrative: In summary patient is a 49-year-old male who presents to the emergency department for evaluation of right lower extremity pain and swelling. Patient is hemodynamically stable upon arrival, afebrile. Physical exam is remarkable for bilateral lower extremity edema that is 3+ pitting however the right lower extremity is significantly more swollen than the left along with marked change given that he wears bilateral knee sleeves he has significant edema between the knee sleeve and his sock top. The right lower extremity has redness and swelling but no palpable cords. There is no induration noted. Peripheral pulses are +2 and brisk in the bilateral lower extremities.. Differential diagnosis includes cellulitis versus possible DVT etc. Initial workup will be conducted with logic labs and POCUS. Initial interventions Tylenol and ibuprofen for now until initial workup is complete. Initial workup reviewed by me shows his hematologic significant a D-dimer of 1.9 and the remainder of his hematologic labs being nonactionable currently. 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 We will however set him up for an outpatient lower extremity ultrasound for DVT. Critical Care Critical Care Time Critical Care Time: No
--- NOTE | 2024-10-09 19:25 | PC.NURSE ---
Skin pink warm and dry REsp full and easy 3+ pedal and lower leg edema noted. Pulses strong and equal. Speech clear and appropriate.
[2024-10-09 20:02] LABS: Basophils # 0.2 K/mm3 (0-0.2); Basophils % 2.6 % (0.1-2.0); Eosinophils # 0.2 K/mm3 (0.0-0.4); Eosinophils % 2.1 % (0.1-12.0); Hematocrit 43.1 % (42.0-52.0); Hemoglobin 14.4 g/dL (14.1-18.0); Lymphocytes # 1.9 K/mm3 (0.7-4.5); Lymphocytes % 21.9 % (10-50); Mean Corpuscular HGB Conc 33.3 g/dL (31.8-35.4); Mean Corpuscular Hemoglobin 30.6 pg (27.0-31.2); Mean Corpuscular Volume 92.1 fl (80-94); Mean Platelet Volume 6.9 fl (7.4-10.4); Monocytes # 0.4 K/mm3 (0.1-1.0); Monocytes % 4.5 % (1.7-9.3); Neutrophils % 68.9 % (37.0-80.0); Platelet Count 271 K/mm3 (142-424); Red Blood Count 4.69 M/mm3 (4.60-6.20); Red Cell Distribution Width 15.5 % (11.5-17.5); White Blood Count 8.7 K/mm3 (4.8-10.8)
[2024-10-09 20:12] LABS: Alanine Aminotransferase 20 U/L (12-78); Albumin Level 3.9 g/dl (3.5-5.0); Albumin/Globulin Ratio 1.3 (1.1-1.8); Alkaline Phosphatase 78 U/L (38-126); Aspartate Amino Transferase 26 U/L (17-59); Bilirubin,Total 0.4 mg/dl (0.2-1.3); Blood Urea Nitrogen 8 mg/dl (9-20); Calcium 8.4 mg/dl (8.4-10.2); Carbon Dioxide 29 mmol/L (22.0-30.0); Chloride 104 mmol/L (98-107); Creatinine Clearance Estimated 119 mL/min (50-200); Estimated Glomerular Filt Rate 102 ml/min (>60); GFR (African American) 123 ML/MIN (>60); Glucose 109 mg/dl (74-100); Magnesium 1.9 mg/dl (1.6-2.3); Sodium 139 mmol/L (136-145); Total Protein,Serum 6.9 g/dl (6.3-8.2)
[2024-10-09 20:33] LABS: Anion Gap 9.6 mEq/L (5-15); Potassium 3.6 mmoL/L (3.5-5.1)
[2024-10-09] MEDS: DALBAVANCIN HCL 1,500 MG in DEXTROSE 5 % IN WATER 250 ML 500 MG IV (21:01)
--- NOTE | 2024-10-09 21:16 | PC.NURSE ---
Dave Bailey contacted that patient is ready to be picked up
--- NOTE | 2024-10-09 21:36 | PC.NURSE ---
Pt discharged to attendant at [facility]. Pt and staff verbalized an understanding of ultrasound procedure.
[2024-10-10 16:43] LABS: HIV Combo NEGATIVE (Negative)
[2024-10-11 06:13] LABS: HCV Ab Non Reactive (Non Reactive)
== END 2024-10-09 21:49 | disposition home or self-care (01) ==
PROVIDERS: Physician Assistant; Emergency Provider Student in an Organized Health Care Education/Training Program; PCP Nurse Practitioner Family
DX: L03.115 Cellulitis of right lower limb (principal); R22.41 Localized swelling, mass and lump, right lower limb
CPT/HCPCS: 80053; 83735; 85025; 85378; 86803; 87389; 96365; 99283; J0875; J7060

== ENCOUNTER 2024-10-10 12:56 | Outpatient (CLI) | payer MEDICAID, SELFPAY ==
--- NOTE | 2024-10-10 | CA_ITS ---
FINAL REPORT TECHNIQUE: Color Doppler, duplex Doppler and compression sonography of the right lower extremity venous system was performed. CLINICAL HISTORY: smoker, edema lower extremities > 6 months. Right> Left, rt leg pain with no known trauma. FINDINGS: There is no evidence of deep venous thrombosis from the level of the groin to the calf. The veins are patent and compressible. IMPRESSION: No evidence of deep venous thrombosis right lower extremity. Reviewed, Interpreted and Dictated by Faizan Yadav III, MD Transcribed by Yeny Busch Authenticated and . [facility]
== END 2024-10-10 23:59 | disposition home or self-care (01) ==
LOC: RT 12:57
PROVIDERS: Visit Provider Ophthalmology
DX: M79.661 Pain in right lower leg (principal); R22.41 Localized swelling, mass and lump, right lower limb; L03.115 Cellulitis of right lower limb
CPT/HCPCS: 93971